=== PATIENT | male | born 2005 | race Caucasian/White ===

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

== ENCOUNTER → 2024-01-18 | Outpatient (CLI) | payer OTHER, SELFPAY ==
[2024-01-18 17:28] LABS: Absolute Lymphocyte Count 1.94 X10^3/uL (0.83-4.51); Absolute Neutrophil Count 3.8 X10^3/uL (2.0-7.7); Basophil# 0.05 X10^3/uL; Basophil% 0.8 % (0-1); Eosinophil# 0.17 X10^3/uL; Eosinophils% 2.7 % (0-5); Hematocrit 44.8 % (40-54); Hemoglobin 15.3 g/dL (13.0-16.5); Lymphocyte # 1.94 X10^3/ul (0.83-4.51); Mean Corp Hgb Conc 34.2 g/dL (32-36); Mean Corpuscular Hgb 30.4 pg (27.0-32.0); Mean Corpuscular Volume 89.1 fL (80-94); Mean Platelet Vol. 9.9 fl (6.2-12.0); Monocyte# 0.32 X10^3/uL; Monocyte% 5.1 % (0-10); NRBC Flagged by Analyzer 0 % (0-5); Neutrophil # 3.77 X10^3/uL (2.7-7.7); Neutrophil % 60.2 % (47-70); Platelet Count 279 K/mm3 (150-450); RBC Distribution Width CV 11.4 % (11.6-14.6); RBC Distribution Width SD 36.3 fl (35.1-43.9); Red Blood Count 5.03 M/mm3 (4.6-6.2); White Blood Count 6.3 K/mm3 (4.4-11.0)
[2024-01-18 17:46] LABS: Erythrocyte Sedimentation Rate 3 mm/hr (0-20)
[2024-01-18 17:53] LABS: ALB/GLOB Ratio 1.2 RATIO (0.9-2.4); AST(SGOT) 15 U/L (15-37); Alanine Aminotransfer ALT/SGPT 17 U/L (16-61); Albumin, Serum 4.4 g/dL (3.2-5.0); Alkaline Phosphatase 73 U/L (45-117); Anion Gap 5 (5-15); BUN 10 mg/dL (7-18); BUN/Creat Ratio 9.4 RATIO (10-20); CRP < 2.90 mg/L (0.0-3.0); Calcium,Total 9.2 mg/dL (8.5-10.1); Chloride 102 mmol/L (98-107); Creatinine, Serum 1.06 mg/dL (0.70-1.30); EST Glomerular Filtration Rate 95 mL/min (>60); Est Glom Filt Rate - Afr Amer 115 mL/min (>60); Globulin 3.7 g/dL (2.2-4.2); Glucose 135 mg/dL (74-106); Potassium 3.8 mmol/L (3.5-5.1); Protein, Total 8.1 g/dL (6.4-8.2); Sodium Level 136 mmol/L (136-145)
== END | disposition home or self-care (01) ==
LOC: MTLAB 15:22
PROVIDERS: PCP Internal Medicine; Referring Provider Internal Medicine; Visit Provider Internal Medicine
DX: R11.2 Nausea with vomiting, unspecified (principal); R10.31 Right lower quadrant pain
CPT/HCPCS: 36415; 80053; 85025; 85652; 86140

== ENCOUNTER → 2024-04-28 | Outpatient (CLI) | payer OTHER, SELFPAY ==
[2024-04-30 17:07] LABS: H.Pylori Breath Test Negative (Negative)
== END | disposition home or self-care (01) ==
LOC: LAB 14:03
PROVIDERS: PCP Internal Medicine; Referring Provider Internal Medicine; Visit Provider Internal Medicine
DX: R11.2 Nausea with vomiting, unspecified (principal); R10.31 Right lower quadrant pain
CPT/HCPCS: 83013

== ENCOUNTER → 2024-05-06 | Outpatient (CLI) | payer OTHER, SELFPAY ==
[2024-05-06 14:59] LABS: Erythrocyte Sedimentation Rate < 1 mm/hr (0-20)
[2024-05-06 15:01] LABS: International Normalized Ratio 1.1; Platelet Count 235 K/mm3 (150-450); Prothrombin Time (Protime)PT. 14.4 SECONDS (11.7-14.9); RET-HE 35.4 pg (30-35)
[2024-05-06 15:28] LABS: Vitamin B12 421 pg/mL (211-911)
[2024-05-06 15:56] LABS: ALB/GLOB Ratio 1.3 RATIO (0.9-2.4); AST(SGOT) 16 U/L (15-37); Alanine Aminotransfer ALT/SGPT 16 U/L (16-61); Albumin, Serum 4.2 g/dL (3.2-5.0); Alkaline Phosphatase 61 U/L (45-117); Anion Gap 6 (5-15); BUN 8 mg/dL (7-18); BUN/Creat Ratio 9.4 RATIO (10-20); CRP < 2.90 mg/L (0.0-3.0); Chloride 105 mmol/L (98-107); Creatinine, Serum 0.85 mg/dL (0.70-1.30); EST Glomerular Filtration Rate 122 mL/min (>60); Est Glom Filt Rate - Afr Amer 148 mL/min (>60); Ferritin 39 ng/mL (26-388); Globulin 3.3 g/dL (2.2-4.2); Glucose 103 mg/dL (74-106); Iron 85 ug/dL (65-175); Iron Binding Capacity,Total 347 ug/dL (250-450); Potassium 3.6 mmol/L (3.5-5.1); Protein, Total 7.5 g/dL (6.4-8.2); Sodium Level 138 mmol/L (136-145); T4 Free Direct 0.91 ng/dL (0.76-1.46); Thyroid Stim Hormone (TSH) 0.67 uIU/mL (0.358-3.74)
[2024-05-13 04:07] LABS: Chocolate <0.10 kU/L (Class 0); Codfish <0.10 kU/L (Class 0); Corn <0.10 kU/L (Class 0); Egg, Whole <0.10 kU/L (Class 0); Milk (Cow) <0.10 kU/L (Class 0); Mussels <0.10 kU/L (Class 0); Peanut <0.10 kU/L (Class 0); Pork <0.10 kU/L (Class 0); Salmon <0.10 kU/L (Class 0); Shrimp <0.10 kU/L (Class 0); Soybean <0.10 kU/L (Class 0); Tuna <0.10 kU/L (Class 0); Wheat <0.10 kU/L (Class 0)
[2024-05-13 13:42] LABS: Albumin 4.4 g/dL (2.9-4.4); Alpha-1-Globulins 0.2 g/dL (0.0-0.4); Alpha-2-Globulins 0.7 g/dL (0.4-1.0); Angiotensin Convert Enzyme 40 U/L (14-82); Anti-Parietal Cell AB, QN 16.1 Units (0.0-20.0); Ceruloplasmin 14.7 mg/dL (16.0-31.0); Copper, Serum or Plasma 53 ug/dL (63-121); Cytoplasmic Ab (C-ANCA) <1:20 titer (Neg:<1:20); Endomysial Antibody IgA Negative (Negative); Gamma Globulin 0.9 g/dL (0.4-1.8); Gastrin, Serum 662 pg/mL (0-115); HEPATITIS B SURFACE AG Negative (Negative); Hep C Antibodies Non Reactive (Non Reactive); Hepatitis A IgM Antibody Negative (Negative); Hepatitis B Core AB IgM Negative (Negative); IMMUNOFIXATION RESULT,S Comment: (.); Immunoglobulin A 202 mg/dL (90-386); Immunoglobulin E 43 IU/mL (6-495); Immunoglobulin G 1052 mg/dL (603-1613); Immunoglobulin M 103 mg/dL (20-172); Perinuclear Ab (P-ANCA) <1:20 titer (Neg:<1:20); t-Transglutaminase IgA <2 U/mL (0-3)
== END | disposition home or self-care (01) ==
LOC: LAB 13:58
PROVIDERS: PCP Internal Medicine; Referring Provider Internal Medicine Gastroenterology; Visit Provider Internal Medicine Gastroenterology
DX: R11.2 Nausea with vomiting, unspecified (principal); R10.31 Right lower quadrant pain
CPT/HCPCS: 36415; 80053; 80074; 82140; 82164; 82390; 82525; 82607; 82652; 82728; 82746; 82784; 82785; 82941; 83516; 83540; 83550; 84165; 84439; 84443; 84481; 85045; 85610; 85652; 86003; 86005; 86140; 86255; 86256; 86334

== ENCOUNTER 2024-05-13 05:50 | Day surgery (SDC) | payer OTHER, SELFPAY ==
[2024-05-13] VITALS (10 sets, daily range): BP systolic 102–140; BP diastolic 46–93; PULSE 94–106; RESP 15–24; TEMP 36.6–36.9; O2SAT 94–100; BMI 18.6
[2024-05-13] MEDS: Lactated Ringers 1,000 ML 15 ML IV (06:29)
--- NOTE | 2024-05-13 06:39 | PCM.HP.BLA ---
History and Physical Date of Admission: 05/13/24 Chief Complaint: nausea Details: DEVAN SPENCER, is a 19 M who presents to the office today for initial consult. *BGI established 8.9.24 pt reports chronic nausea, vomiting 1-2 times a week, heartburn after eating; cannot identify trigger foods, and difficulty swallowing foods. Pt reports that these symptoms began in December when he was changing around his antidepressants. Mom states that pt had some of these symptoms when he was young. Pt reports that he has never had an EGD. ROS Const Constitutional: Positive for fatigue and headache(s); No fever(s) or weight change ENT ENT: Positive for headache(s) and difficulty swallowing Gastro GI: Positive for heartburn, difficulty swallowing, nausea/dyspepsia and vomiting; No abdominal pain, belching, bloating, change in bowel habits, change in stool character, coffee ground emesis, constipation, cramping, diarrhea, feeling full early, excessive flatus, incontinent of stools, Vomiting blood/hematemesis, Blood in stool, loose stools, Black,tarry stools, pain with swallowing or other Musc Musculoskeletal: Positive for joint pain Skin Skin: No yellowing of the eye or itchy eyes Neuro Neurology: Positive for headache(s) and tremor(s) Psych Psychiatric: Positive for anxiety, No depression and Positive for obsessions/compulsions Endo Endocrine: Positive for fatigue; No weight change Aller/Imm Allergy/Immunologic: No itchy eyes Milo/Lymp Hematologic/Lymphatic: No easy bleeding or easy bruising Exam Const General: cooperative, anxious, frail appearing and ill appearing Orientation: alert, awake and oriented x3 HENMT Mouth: lip abnormal (lips dry) and oral mucosa abnormal (dry) Resp Effort & Inspection: normal respiratory effort, able to speak in complete sentences and symmetric chest movement Auscultation: Bilateral: Clear to Auscultation, Left: Clear to Auscultation and Right: Clear to Auscultation Cardio Rate: tachycardic (mild tachy ) Rhythm: regular rhythm Heart Sounds: S1 normal and S2 normal GI Other: + tenderness at McBurney point from umbilicus to the right?anterior superior iliac spine. + tenderness upper middle quadrant abdomen + rebound tenderness RLQ - negative Rosvigs, obturator and psoas Skin Other: normal skin turgor Neuro General: patient alert, patient awake and patient oriented x3 Cognition: normal cognition Speech: speech normal Psych Mood: anxious mood Attitude: cooperative Thought Process: normal Thought Content: normal Judgment: judgment good Assessment and Plan Assessment and Plan (1) Nausea & vomiting: Status: Acute Qualifiers: Vomiting type: unspecified Qualified Code(s): R11.2 - Nausea with vomiting, unspecified (2) Abdominal pain: Status: Acute Qualifiers: Abdominal location: right lower quadrant Qualified Code(s): R10.31 - Right lower quadrant pain Plan: Very pleasant 19-year-old gentleman with history of gastroesophageal reflux disease, severe anxiety, positive history of Quan-Danlos syndrome in his mother presents with intermittent esophageal dysphagia and intermittent bloating and abdominal pain. Differential diagnosis does include eosinophilic esophagitis, gastroesophageal reflux disease with peptic stricture, hiatal hernia. Also the differential diagnosis does include gastroparesis. Recommendations: he will undergo upper endoscopy for evaluation of his upper GI tract. Recommend PPI therapy with 20 mg twice a day. I have examined the patient and the H&P has been reviewed. There are no clinical changes since date of exam.
--- NOTE | 2024-05-13 06:58 | PCM.PRE.AN2 ---
ASA Classification* ASA Classification ASA Classification: 2 Assessment & Plan Anesthesia* Anesthesia Assessment Anesthesia Assessment: Discussed sedation and/or anesthesia options, risks, benefits, and alternatives with patient/parents/legal guardian/POA. Questions invited. The patient/parents/legal guardian/POA seems to understand and agrees to proceed with anesthesia plan. Reviewed the physical assessment, medical history, allergy history and patient home medications list prior to surgery/procedure/anesthetic and documented any changes. Performed airway and anesthesia risk assessments. Anesthesia Type Anesthesia Type: MAC History Source History Obtained from:: Patient and Chart Anesthesia Focused Assessment* Temperature: 98.4 F Pulse Rate: 106 Blood Pressure: 140/93 Respiratory Rate: 24 Pulse Ox: 100 Airway Assessment Mouth opens: >3 cm Mallampati Score: II Teeth Condition: Intact Neck Range of motion (ROM): Full ROM Focused Labs Anesthesia Preop lab: CBC WBC 6.3 K/mm3 (4.4-11.0) 01/18/24 15:23 RBC 5.03 M/mm3 (4.6-6.2) 01/18/24 15:23 Hgb 15.3 g/dL (13.0-16.5) 01/18/24 15:23 Hct 44.8 % (40-54) 01/18/24 15:23 Plt Count 279 K/mm3 (150-450) 01/18/24 15:23 CHEMISTRY Potassium 3.6 mmol/L (3.5-5.1) 05/06/24 14:19 Sodium 138 mmol/L (136-145) 05/06/24 14:19 Magnesium 2.4 mg/dL (1.6-2.6) 03/05/23 09:28 BUN 8 mg/dL (7-18) 05/06/24 14:19 Creatinine 0.85 mg/dL (0.70-1.30) 05/06/24 14:19 Glucose 103 mg/dL (74-106) 05/06/24 14:19 TSH 0.67 uIU/mL (0.358-3.74) 05/06/24 14:19 COAG PT 14.4 SECONDS (11.7-14.9) 05/06/24 14:19 Pre-Assessment Diagnosis/Proposed Procedure Planned Operative Procedure(s): egd Anesthesia History 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 When Was Last Pacemaker Check QUESTION #4 FULL TEXT: You/Your Family Experience fever (hyperthermia) with Anesthesia Last Oral Intake Last Oral intake: Last Oral Intake NPO since 16:00 05/13/24 06:20 Meds taken in AM with sips of Yes 05/13/24 06:20 water? Meds patient instructed to take am of surgery PONV PONV - systems accountant: PONV - systems accountant Female No 05/10/24 13:33 HX of Motion Sickness Yes 05/10/24 13:33 HX of N/V After Surgery No 05/10/24 13:33 Non-Smoker Yes 05/10/24 13:33 Duration of Surgery greater No 05/10/24 13:33 than 60 minutes Number of Risk Factors 2 05/10/24 13:33 PONV Score Moderate Risk 05/10/24 13:33 Height & Weight Height & Weight: Anesthesia: Height & Weight Height 5 ft 9 in 05/13/24 06:20 Weight: 57.1 kg 05/13/24 06:20 Body Mass Index (BMI) 18.6 05/13/24 06:20 Respiratory Assessment Respiratory Assessment - systems accountant: Respiratory Tract Infection Hx - systems accountant Hx Respiratory Tract Infection No 05/10/24 13:33 STOP Sleep Apnea STOP Sleep Apnea - systems accountant: STOP Sleep Apnea - systems accountant Hx Hypertension No 05/10/24 13:33 Hx Sleep Apnea No 05/10/24 13:33 CPAP BIPAP Do you snore loudly (louder No 05/10/24 13:33 than talking or can be heard Do you often feel tired/ No 05/10/24 13:33 fatigued/ sleepy during daytime? Has anyone observed you stop No 05/10/24 13:33 breathing during sleep? STOP Results Negative 05/10/24 13:33 QUESTION #5 FULL TEXT : Do you snore loudly (louder than talking or can be heard through closed doors)? Tobacco Use History Tobacco Use History - systems accountant: Tobacco Use History - systems accountant Tobacco Use Smoking Status Never smoker 05/10/24 13:33 Hx Tobacco Use No 05/10/24 13:33 Years Smoking Packs Smoked per Day Smoking Cessation Date was within the last 15 years Hx Smoking Cessation Date Hx Smoking Cessation Counseling Hematologic Medial History Hematologic Hx - systems accountant: Hematologic Medical Hx - internal carver Hx of Blood Transfusion No 05/10/24 13:33 Hx of Transfusion in last 3 No 05/10/24 13:33 Months Date of Last Transfusion (if within last 3 months) Ever experience any problems No 05/10/24 13:33 with transfusion(s)? Specify any problems Hx of Preganancy in last 3 N/A 05/10/24 13:33 Months Nurse Filling Out Transfusion NBUCHER 05/10/24 13:33 & Questions: Date: 05/10/24 05/10/24 13:33 Time: 13:33 05/10/24 13:33 Patient unable to answer at this time (ie. confused, unrespo /Reproduction History /Reproductive History - systems accountant: /Reproductive Hx- systems accountant Hx Now No 05/10/24 13:33 Gestational Age (in weeks): EDC: Hx Hx Para Hx Section SAB No 05/10/24 13:33 Active Medications Active Medications: Current Medications Generic Name Dose Route Start Last Admin Trade Name Erik PRN Reason Stop Dose Admin Lactated Ringer's 1,000 mls @ 15 mls/hr 05/13/24 06:15 05/13/24 06:29 IV 15 mls/hr .Q48H BARBARA Administration PFSH Medical History Somatic symptom disorder History of echocardiogram Gastroesophageal reflux disease Wears contact lenses Anxiety History of steroid therapy Restless legs Shortness of breath on exertion Non-smoker Home Medications ?Medication ?Instructions ?Recorded ?Last Taken ?Type esomeprazole magnesium 40 mg 40 mg PO DAILY #30 caps 04/28/24 05/12/24 Rx capsule,delayed release (Nexium) acetaminophen 325 mg tablet 325 mg PO ONCE PRN pain 05/06/24 05/12/24 History (Tylenol) cholecalciferol (vitamin D3) 125 125 mcg PO DAILY 05/06/24 05/12/24 History mcg (5,000 unit) capsule multivitamin 1 tab PO DAILY 05/06/24 05/12/24 History ondansetron 4 mg disintegrating 4 mg PO Q8H PRN nausea and vomiting 05/10/24 05/13/24 History tablet 8 mg buspirone 5 mg tablet 5 mg PO BID #60 tabs 05/11/24 Unknown Rx duloxetine 30 mg capsule,delayed 30 mg PO DAILY #30 caps 05/11/24 05/12/24 Rx release Allergy/AdvReac Type Severity Reaction Status Date / Time Sulfa (Sulfonamide Allergy Unknown UNKNOWN Verified 05/13/24 06:18 Antibiotics) Family History Sister Anemia Anxiety Thyroid disorder Vitamin D deficiency Postural orthostatic tachycardia syndrome Mother Anxiety History of blood transfusion Raynauds disease Quan-Danlos syndrome Brother Anxiety Asthma Chiari I malformation Migraines Father Asthma Bowel disease IBS Grandfather Diabetes Heart disease Mitral valve disease Afib Grandmother Parkinsons Surgical History History of nasal polypectomy Nasal polyp Hx of wisdom tooth extraction Social History adopted: No household members: family housing: house number of children: 0 current occupational status: unemployed current occupational exposures/hazards: No pets and animals: Yes pets and animals: dog(s) leisure activities: games history of recent travel: No sexually active: No Smoking Status: Never smoker alcohol intake: never substance use type: does not use well-balanced diet: daily or most days caffeine: No eating out: 1-3 times/week during the past year weight has: remained stable what type of physical activity do you participate in: none seatbelt use: always do you feel safe at home: Yes Review of Systems (Anesthesia) ROS Narrative System reviewed and no additional complaints, except as documented.
--- NOTE | 2024-05-13 07:00 | EGD_PTH ---
PATIENT: DEVAN SPENCER LOC: [place] U#:[id number] AGE/SX: 19/M ROOM: RE05/13/[address]: Dr. Ubaldo Patiño DO : 2005 BED: DIS: 05/13/2024 SPEC #: [id number] RECD: 05/13/24 10:55 STATUS: JT REQ #: [id number] IVY: 05/13/24 07:[address]: Ubaldo Patiño DEPT: SURGICAL PATHOLOGY RECD BY: Bianka Byrne ENTERED: 05/13/24 13:17 SP TYPE: EGD BIOPSY CRISTOPHER DR: Dr. Adilia De Los Santos MD Tissues: A - Duodenum, NOS B - Gastric mucous membrane C - Gastric mucous membrane Procedures: Surgery Specimen Level IV HEADER OPERATION: EGD with biopsy PRE-OP DIAGNOSIS: Nausea/vomiting, abdominal pain TISSUE SUBMITTED: A- Duodenum biopsy, B- Gastric body biopsy, C- Random biopsy MICROSCOPIC DIAGNOSIS A. Duodenum, biopsy: Mild non-specific chronic inflammation. B. Gastric body, biopsy: Mild chronic gastritis. C. Esophagus, random biopsy: Eosinophilic esophagitis. See comment. [place] 05/16/2024 COMMENT B. The results of immunohistochemistry for Helicobacter pylori will be reported separately ([id number]). C. Eosinophils range in number from 15-24 per high power field. The findings are consistent with eosinophilic esophagitis. Clinical correlation is suggested. MICROSCOPIC DESCRIPTION Slides are reviewed. GROSS DESCRIPTION A. Received in fixative is one container labeled with the patient's name and designated Duodenum biopsy. The specimen consists of multiple irregular fragments of light nguyen soft tissue that in aggregate measure 1.2 x 0.3 x 0.1 cm. The specimen is totally submitted in one cassette. B. Received in fixative is one container labeled with the patient's name and designated Gastric body biopsy. The specimen consists of multiple irregular fragments of light nguyen soft tissue that in aggregate measure 1.5 x 0.2 x 0.1 cm. The specimen is totally submitted in one cassette. C. Received in fixative is one container labeled with the patient's name and designated Random esophagus biopsy. The specimen consists of multiple irregular fragments of light nguyen soft tissue that in aggregate measure 0.8 x 0.6 x 0.1 cm. The specimen is totally submitted in one cassette. GEM/ 05/13/2024 TC:3 CPT:07655h8
--- NOTE | 2024-05-13 07:00 | IMM_PTH ---
PATIENT: DEVAN SPENCER LOC: [place] U#:[id number] AGE/SX: 19/M ROOM: RE05/13/[address]: Dr. Ubaldo Patiño DO : 2005 BED: DIS: 05/13/2024 SPEC #: [id number] RECD: 05/13/24 13:27 STATUS: JT REQ #: [id number] IVY: 05/13/24 07:[address]: Ubaldo Patiño DEPT: IMMUNOHISTOCHEMISTRY RECD BY: Jovanni Diop ENTERED: 05/13/24 13:27 SP TYPE: IMMUNO OTHR DR: Dr. Adilia De Los Santos MD Tissues: B - Gastric mucous membrane Procedures: H Pylori (initial) PHYSICIAN & INSTITUTION [place] [id number] SPECIMEN INFORMATION: Tissue Source: B- Gastric body biopsy Clinical Info: Nausea/vomiting, abdominal pain Specimen Number: [id number] CPT code: 24188 METHODOLOGY: Deparaffinized sections of prefer/formalin-fixed tissue or PAP/DQ stained slides are incubated with monoclonal/polyclonal antibodies/oligonucleotide probes. Localization is made via biotin free immunoperoxidase method. Appropriate controls are performed and reacted as expected. Results on target cell population are indicated in the following table: RESULTS: ANTIBODY / CLONE RESULT Block B H Pylori (polyclonal) negative These tests were developed and their performance characteristics determined by [facility]. They may not have been cleared or approved by the U.S. Food and Drug Administration. The FDA has determined that such clearance or approval is not necessary. The above immunohistochemical/dualISH markers are ordered and reviewed by the Pathologist. INTERPRETATION: B. Gastric body, biopsy: Negative for Helicobacter pylori organisms. YARELY/ 05/16/2024
--- NOTE | 2024-05-13 07:27 | OP.CCLET_ITS ---
05/13/2024 Adilia De Los Santos [facility] [address] [place] [address] Re : Upper GI endoscopy procedure for David Naranjo Dear Dr. De Los Santos This procedure was performed on Monday, May 13, 2024. My impressions and recommendations are as follows: Impressions : - Non-severe reflux esophagitis with no bleeding. Biopsied. - Erythematous mucosa in the gastric body. Biopsied. - Bile duodenitis. Biopsied. Recommendations : - Discharge patient to home. - Resume previous diet. - Continue present medications. - Await pathology results. - Gastric emptying study My findings are described in the full procedure note, which is enclosed. If I can be of further assistance, please feel free to contact me at . Sincerely, Ubaldo Patiño, 05/13/2024 7:26:30 AM This report has been signed electronically.
--- NOTE | 2024-05-13 07:27 | OP.EGD_ITS ---
Patient Name: David Naranjo Procedure Date: 05/13/2024 6:14 AM Date of : 2005 Age: 19 Procedure: Upper GI endoscopy Indications: Epigastric abdominal pain Providers: Ubaldo Patiño DO Referring MD: Adilia De Los Santos Medicines: Monitored Anesthesia Care Patient Profile: This is a 19 year old male. Complications: No immediate complications. Procedure: Pre-Anesthesia Assessment: - Prior to the procedure, a History and Physical was performed, and patient medications and allergies were reviewed. The patient is competent. The risks and benefits of the procedure and the sedation options and risks were discussed with the patient. All questions were answered and informed consent was obtained. Patient identification and proposed procedure were verified by the physician in the pre-procedure area. Mental Status Examination: alert and oriented. Airway Examination: normal oropharyngeal airway and neck mobility. Respiratory Examination: clear to auscultation. CV Examination: normal. Prophylactic Antibiotics: The patient does not require prophylactic antibiotics. Prior Anticoagulants: The patient has taken no anticoagulant or antiplatelet agents. ASA Grade Assessment: II - A patient with mild systemic disease. After reviewing the risks and benefits, the patient was deemed in satisfactory condition to undergo the procedure. The anesthesia plan was to use monitored anesthesia care (MAC). Immediately prior to administration of medications, the patient was re-assessed for adequacy to receive sedatives. The heart rate, respiratory rate, oxygen saturations, blood pressure, adequacy of pulmonary ventilation, and response to care were monitored throughout the procedure. The physical status of the patient was re-assessed after the procedure. After obtaining informed consent, the endoscope was passed under direct vision. Throughout the procedure, the patient's blood pressure, pulse, and oxygen saturations were monitored continuously. The gastroscope was introduced through the mouth, and advanced to the second part of duodenum. The upper GI endoscopy was accomplished without difficulty. The patient tolerated the procedure well. Scope In: 7:13:25 AM Scope Out: 7:18:52 AM Total Procedure Duration Time 0 hours 5 minutes 27 seconds Findings: Non-severe esophagitis with no bleeding was found. Biopsies were taken with a cold forceps for histology. Verification of patient identification for the specimen was done. Estimated blood loss was minimal. Patchy mildly erythematous mucosa without bleeding was found in the gastric body. Biopsies were taken with a cold forceps for histology. Biopsies were taken with a cold forceps for histology. Verification of patient identification for the specimen was done. Estimated blood loss was minimal. Diffuse moderate inflammation characterized by congestion (edema), erythema and granularity was found in the duodenal bulb, in the first portion of the duodenum and in the second portion of the duodenum. Biopsies were taken with a cold forceps for histology. Verification of patient identification for the specimen was done. Estimated blood loss was minimal. Impression: - Non-severe reflux esophagitis with no bleeding. Biopsied. - Erythematous mucosa in the gastric body. Biopsied. - Bile duodenitis. Biopsied. Recommendation: - Discharge patient to home. - Resume previous diet. - Continue present medications. - Await pathology results. - Gastric emptying study Procedure Code(s): --- Professional --- 95169, Esophagogastroduodenoscopy, flexible, transoral; with biopsy, single or multiple CPT copyright 2021 [employer]. All rights reserved. The codes documented in this report are preliminary and upon nursing teacher review may be revised to meet current compliance requirements. Ubaldo Patiño DO 05/13/2024 7:26:30 AM This report has been signed electronically. Number of Addenda: 0 Note Initiated On: 05/13/2024 6:14 AM
--- NOTE | 2024-05-13 07:36 | PCM.POST.ANE ---
Anesthesia: Postop Eval I Current Vital Signs Temperature: 97.9 F Pulse Rate: 101 Blood Pressure: 112/62 Respiratory Rate: 18 Pulse Ox: 98 Oxygen Delivery Method: Room Air Assessment Airway patent: Yes Spontaneous unlabored respirations: Yes Mental status: Asleep nausea: No Vomiting: No Anesthesia Complication: No Fluid Hydration Crystalloid volume administer (ml): 400 Total IV fluid infused: 400 Progress Note Anesthesia document: Postop Eval 1 completed: Yes
--- NOTE | 2024-05-13 12:45 | PCM.POSTANE2 ---
Anesthesia Postop Eval I Sum Postop Eval Completion status Anesthesia document: Postop Eval 1 completed: Yes Anesthesia Postop Eval I Summary Anesthesia Postop Eval I Summary: Anesthesia Postop Eval I: Assessment Summary Airway patent Yes 05/13/24 07:36 [email or web address] Spontaneous unlabored Yes 05/13/24 07:36 [email or web address] respirations Mental status Asleep 05/13/24 07:36 [email or web address] nausea No 05/13/24 07:36 [email or web address] Vomiting No 05/13/24 07:36 [email or web address] Anesthesia Postop Eval I: Fluid Summary Crystalloid volume administer 400 05/13/24 07:36 [email or web address] (ml) Colloids volume administered ( ml) Blood Product volume administered (ml) Total IV fluid infused 400 05/13/24 07:36 [email or web address] Anesthesia Postop Eval I: Summary Notes Anesthesia Complication No 05/13/24 07:36 [email or web address] Anesthesia Complication Comment: Post-operative progress note Anesthesia: Postop Eval II Evaluation Mental status: Awake Pain Level: 0 nausea: No Vomiting: No
== END 2024-05-13 08:13 | disposition home or self-care (01) ==
LOC: EN 05:56 → AC 05:59
PROVIDERS: PCP Internal Medicine; Referring Provider Internal Medicine; Visit Provider Internal Medicine Gastroenterology
PROC: 0DJ08ZZ Inspection of Upper Intestinal Tract, Via Natural or Artificial Opening Endoscopic (ICD-10-PCS; CPT 43235; principal; 2024-05-13 06:55)
DX: K21.00 Gastro-esophageal reflux disease with esophagitis, without bleeding (principal); K29.50 Unspecified chronic gastritis without bleeding; K29.80 Duodenitis without bleeding; F41.8 Other specified anxiety disorders; Z79.899 Other long term (current) drug therapy
CPT/HCPCS: 43239; 88305; 88342; J7120; J2405

== ENCOUNTER → 2024-05-19 | Outpatient (CLI) | payer OTHER, SELFPAY ==
--- NOTE | 2024-05-19 08:14 | NM_ITS ---
CLINICAL: 19-year-old male with history of chronic nausea. SEMI-SOLID PHASE 99m Tc SULFUR COLLOID GASTRIC EMPTYING STUDY COMPARISON: None available FINDINGS: The patient was administered 1.2 mCi of 99m Tc sulfur colloid mixed with oatmeal and consumed per os. Image acquisitions in the anterior-posterior projections were obtained for 60 minutes. There is prompt visualization of the stomach. There is no gastroesophageal reflux identified. First order kinetics are maintained throughout the duration of the acquisitions. The T ? linear fit was calculated to be 60.51 minutes, (Normal: 12-56 minutes). NM/Gastric Emptying Study IMPRESSION: 1. ABNORMAL 99m Tc sulfur colloid semi-solid phase (oatmeal) gastric emptying imaging examination. A. There is delayed semi-solid phase gastric emptying compared to normal controls with maintained first order kinetics throughout all components of the examination. (Avelino et al, J Nucl Med Tech 38: 186, 2010). Electronically Signed: Dima Tracy DO at 23:36 EDT ,
== END | disposition home or self-care (01) ==
LOC: NM 08:10
PROVIDERS: PCP Internal Medicine; Referring Provider Internal Medicine Gastroenterology; Visit Provider Internal Medicine Gastroenterology
DX: R10.32 Left lower quadrant pain (principal); R11.2 Nausea with vomiting, unspecified
CPT/HCPCS: 78264; A9541

== ENCOUNTER → 2024-08-02 | Outpatient (CLI) | payer OTHER, SELFPAY ==
--- NOTE | 2024-08-02 09:22 | NM_ITS ---
CLINICAL: 19-year-old male with history of bilateral acid reflux. RADIONUCLIDE HEPATOBILIARY SCINTIGRAPHY COMPARISON: None available FINDINGS: Following the intravenous administration of 5.5 mCi of 99m Tc Mebrofenin, hepatobiliary images reveal: 1. Relatively prompt and homogeneous radiopharmaceutical concentration is noted by a normal sized liver. No parenchymal defects are identified. 2. Gallbladder activity is identified at 10-15 minutes post radiopharmaceutical administration. 3. Small intestinal tract is observed at 45 minutes following tracer injection. 4. Washout of the radiopharmaceutical by the hepatic parenchyma appears qualitatively normal. Cholecystokinin (0.02 ug/kg) was administered intravenously over a 30-minute period. The post CCK gallbladder ejection fraction calculated at 20 minutes following Cholecystokinin administration was noted to be 11.0 % (normal greater than 35%). NM/Hepatobilliary Img w/Pharm Int IMPRESSION: 1. ABNORMAL 99m Tc Mebrofenin hepatobiliary imaging examination with Cholecystokinin. A. A gallbladder ejection fraction calculated to be less than 35% following the administration of Cholecystokinin is consistent with the presence of functional hepatobiliary disease (gallbladder and/or sphincter of Oddi dyskinesia) and/or organic hepatobiliary disease (chronic acalculous cholecystitis and/or cystic duct syndrome) in patients with intermediate to high pretest probabilities of hepatobiliary illness. (Jesse Reaves et al, Journal of Nuclear Medicine 32:1695, 1991). Electronically Signed: Dima Tracy DO at 7:43 EST ,
--- OUTSIDE RECORDS SUMMARY | 2024-08-02 10:38 | XMS RPT_ITS | CCD ---
Author Organization [facility] Care Team Providers Care Infection Prevention Coordinator Name Role Phone Francisca Corrales MD Primary Care Provider [phone] FRANCISCA CORRALES Primary Care Unavailable SAVANNA, FRANCISCA Mclaughlin Primary Care Unavailable FRANCISCA CORRALES Attending Unavailable FRANCISCA CORRALES Referring Unavailable FRANCISCA CORRALES Primary Care Unavailable FRANCISCA CORRALES Primary Care Unavailable FRANCISCA CORRALES Attending Unavailable FRANCISCA CORRALES Primary Care Unavailable Francisca Corrales MD Primary Care Provider Allergies Allergy Classification Reported Allergen(s) Allergy Type Date of Onset Reaction(s) Facility (6 sources) Sulfonamides (Antibiotic); Translations: [SULFA (SULFONAMIDE ANTIBIOTICS)] Drug Allergy 02-20-2015 Rash [facility] Work Phone: Medications Completed/Discontinued Medications Medication Drug Class(es) Dates Sig (Normalized) Sig (Original) dapsone 0.075 mg/mg topical gel (5 sources) Sulfone Start: 12-24-2017 ACZONE 7.5 % glwp APPLY TO THE FACE AT NIGHT. 12 12/24/2017 Active Comment on above: APPLY TO THE FACE AT NIGHT. doxycycline anhydrous 40 mg delayed release oral capsule (5 sources) Tetracycline-clas s Drug Start: 03-02-2019 Doxycycline Monohydrate (ORACEA) 40 mg capsule predniSONE 10 mg oral tablet (2 sources) Start: 02-09-2022 End: 03-31-2022 predniSONE (DELTASONE) 10 mg tablet Take 4 tabs daily for 3 days, then 2 tabs daily for 3 days, then 1 tab daily for 3 days with food. 21 tablet 0 02/09/2022 03/31/2022 Discontinued (Course of therapy completed) Comment on above: Take 4 tabs daily fo r 3 days, then 2 tabs daily for 3 days, then 1 tab daily for 3 days with food. Problems Active Problems Problem Classification Problem Date Documented Da te Episodic/Chronic Other upper respiratory disease (1 source) Nasal congestion; Translations: [Nasal congestion] Episodic Other upper respiratory infections (1 source) Pharyngitis; Translations: [Acute pharyngitis, unspecified] Episodic Viral infection (1 source) Viral disease; Translations: [Viral infection, unspecified] Episodic Past or Other Problems Problem Classification Problem Date Documented Da te Episodic/Chronic Other connective tissue disease (1 source) Myalgia, unspecified site; Translations: [Myalgias] Onset: 12-20-2021 Episodic Results Test Name Value Interpretation Reference Range Facil ity CNOVon 08-06-2022 CNOV Office Visit (UCWSTR ) DEVAN NARANJO ([id number]) 3 M Date Time Provider Department 08/06/22 10:30 AM TATE CRUZ [facility] During your visit today, we recorded the following information about you: Temperature Pulse Respiration Blood pressure 98 degrees 104/minute 16/minute 104/78 Weight 52.5 kg Tate Cruz APRN.CNP 08/06/2022 10:52 AM Signed How to Manage Common Symptoms Associated with COVID for Adults Fever- Fever is a temperature over 100.4 F and can occur when the body is fighting an infection. To help treat a fever: Drink plenty of fluids and stay well hydrated. Eat small amounts of easy to digest food. Rest. Your body needs rest to recover, but getting up and moving around the house frequently is a good idea. You should try to continue doing your normal daily activities (bathing, toileting, grooming, cooking), though you will probably feel tired, and need to rest often. Avoid any heavy activity or exercise, as this will increase your body temperature. Dress in light clothing and stay covered in a light sheet. Keep the room temperature cool. Take a slightly warm (not cold or cool) bath, or apply damp washcloths to the forehead and wrists. Cough- Cough is a common symptom associated with COVID and can be bothersome. To help treat a cough: Stay well hydrated. Try warm water or tea with lemon and/or honey to help soothe the cough. Use a humidifier to add moisture to the air. Try a product with menthol, like a cough drop or a rub for your chest such as Vicks, which can help reduce cough. Try cough drops. Avoid smoking and other strong odors or perfumes. Try breathing exercises to keep your lungs open and clear. Take a big deep breath through your nose and hold for 5 seconds before slowly releasing. Repeat frequently, while you are awake. Congestion- Runny nose or nasal congestion can occur with COVID. Treatment can help relieve symptoms: Try OTC nasal saline spray, or nasal saline rinse to relieve mucus congestion. Nasal strips can help keep nasal passages open, to increase airflow. Elevating your head with an extra pillow in bed can help reduce congestion. Using a humidifier can increase moisture in the air, and make breathing easier. Sore Throat- Another common symptom with COVID, can be managed at home by: Stay well hydrated. Gargle with salt water - mix ? teaspoon salt with 1 cup of warm water and gargle. This helps to loosen mucus in the back of the throat and may reduce discomfort. Try ice chips, popsicles or lozenges to soothe the throat. Nausea/Vomiting/Diarrhe a- These are common symptoms, and staying hydrated is most important. If you are nauseous or vomiting, start with small sips of water every 10-15 minutes and increase as tolerated. You can try sucking an ice cube too. If tolerating, you can try pedialyte or Gatorade, or flat sprite or lola-thierry. Start slowly and increase as you are able to. Instead of meals, try smaller, more frequent snacks. Try eating bland foods like crackers, toast, rice, and applesauce. Avoid spicy, greasy or fried foods and dairy containing foods. Even if you aren't feeling hungry due to lack of smell or taste, it is important to try to take in some food when you are able. After drinking and eating, rest in an upright position for up to two hours as needed to help decrease nauseous feelings. Try closing your eyes, avoid moving and watching TV. Avoid strong odors that can make you feel more nauseated. When to seek emergency medical attention Look for emergency warning signs for COVID-19. If having any of these symptoms, seek emergency medical care immediately: Trouble breathing Persistent pain or pressure in the chest New confusion Inability to wake or stay awake Bluish lips or face *This list is not all possible symptoms. Please call your medical provider for any other symptoms that are severe or concerning to you. Tate Cruz, DELMAR.BOAT DISPATCHER 08/06/2022 11:41 AM Signed Subjective HPI Nontoxic-appearing male presents urgent care accompanied by mother. Chief complaint of upper respiratory tract like infection. Duration of symptoms 3 days. Associated symptoms sore throat, nasal congestion, nasal discharge and nonproductive cough. Patient denies the use of any yiwz-hgy-qdvkgqd medications or home remedies for symptom management toady. Did use Mucinex DM yesterday. This did help. Patient states recent sick contacts with similar signs and symptoms. Patient denies any productive cough, fever, chest pain, shortness of breath, pleuritic pain, rash, abdominal pain, nausea, vomiting or change in bowel or bladder habit. Past medical history prescription medication use allergies reviewed. .Patient presents with: Cough: Cough, congestion and ST x 3 days PAST MEDICAL HISTORY Diagnosis Date NEGATIVE HISTORY O (more content not included)... Normal [facility] CNOVon 03-18-2022 CNOV Office Visit (PEDSWS ) DEVAN NARANJO ([id number]) 3 M Date Time Provider Department 03/18/22 11:00 AM FRANCISCA CORRALES During your visit today, we recorded the following information about you: Temperature Pulse Respiration Weight 98.6 degrees 72/minute 16/minute 51.4 kg Francisca Corrales MD 03/31/2022 2:28 PM Signed 18-year-old male presents to the office today with his mother for concerns of chronic nasal congestion present for 1 month. Additional symptoms include maxillary sinus pressure. He denies the symptoms are consistent with a headache. Patient was seen in urgent care on February 09, 2022. COVID testing was negative. Patient was prescribed a course of oral prednisone. Outside urgent care and prescribed Augmentin. Prescription date appears to be 03/01/2022 based on care everywhere. Additionally the patient is using zfzi-bkk-xgsovyb nasal steroids and saline. None of these have provided him any relief. No fevers are present No eye injection or discharge is present No otalgia is present. There is no problem list on file for this patient. PAST MEDICAL HISTORY Diagnosis Date - NEGATIVE HISTORY OF 05-09-10 normal color vision - Routine or ritual circumcision PAST SURGICAL HISTORY Procedure Laterality Date - CIRCUMCISION W/CLAMP/OTH DEV W/BLOCK ALLERGIES Allergen Reactions - Sulfa (Sulfonamide * Rash 03/18/22 1104 Pulse: 72 Resp: 16 Temp: 37 ?C (98.6 ?F) TempSrc: Temporal Weight: 51.4 kg (113 lb 6.4 oz) Physical examination of the head, neck, external ears, mouth and face fail to demonstrate any significant abnormality or assymetry to critical face to face observation. The salivary glands were normal. Facial motion was intact. NOSE: Examination of the nasal chamber revealed no significant abnormalities of the nasal septum, turbinates or meati. The mucosa was healthy and the airway was satisfactory. Clear nasal discharge is present. I do not appreciate any nasal polyps. MOUTH: Examination of the mouth included the lips, teeth, gums, hard and soft palate, tongue, floor of the mouth, and buccal mucosa were healthy to inspection and the mucosa was moist. OROPHARYNX: Examination of the oropharynx, including the soft palate, tonsillar fossa and posterior pharyngeal bone were unremarkable and symmetrical. NECK: Inspection and palpation of the neck revealed no scars, masses crepitation or asymmetries. The thyroid was not palpable and was free of masses. EARS: Otoscoptic examination of the external canal, tympanic membrane and middle ear was unremarkable. Tympanic membranes are intact. Impression: Nasal congestion (primary encounter diagnosis) Plan: Flonase OTC, 2 sprays to each nostril once daily Discussed the importance of proper technique to maximize effectiveness Helpful tips for NASAL SPRAY use 1. Start by gently blowing your nose 2. Sit in a chair, with your knees hip width apart, lean forward (as demonstrated in clinic) Face looking straight down at the ground. 3. Insert nozzle into the right nostril and aim toward the tip of your right ear (do not aim straight up) 4. Squirt once At this time you can close your left nostril and lightly sniff the medication in through your right nostril. 5. THEN insert nozzle into the left nostril and aim toward the tip of your left ear. 6. squirt once At this time you can close your left nostril and lightly sniff the medication in through your right nostril. 7. Repeat step # 4 above ,if advised to take 2 squirts. 8. Keep leaning forward, facing down at the ground for 5 minutes. 9. Do this at bedtime daily--may do it in the Morning if you prefer, but be regular AND consistent. 10. May substitute with Saline spray x 5days, for nose bleeds. I spent a total of 25 minutes on the date of the service which included preparing to see the patient, eyki-re-ivan patient care, completing clinical documentation, obtaining and/or reviewing separately obtained history, performing a medically appropriate examination, counseling and educating the patient/family/caregive r and ordering medications, tests, or procedures. Follow-up No improvement in 3 to 4 weeks refer to ENT Francisca Corrales MD [facility] Department of Pediatrics, [facility] Referring Provider: SELF [200] Allergies As of Date: 03/18/2022 Noted Allergy Reaction SULFA (SULFONAMIDE ANTIBIOTICS) 02/20/2015 2 - Rash Date Reviewed: 03/18/2022 Reviewed by: Jaye Farley Ma - Fully Assessed Reason for Visit: Sinus Problem [99] Cmt: ongoing x1 month - was seen in the now clinic 3 weeks ago - started on augmentin - starte to help some but still having symptoms Primary Visit Diagnosis:Nasal congestion [R09.81] Prescriptions as of 03/31/2022 - Doxycycline Monohydrate (ORACEA) 40 mg capsule - ACZONE 7.5 % glwp APPLY TO THE FACE AT NIGHT. Problem List (more content not included)... Normal [facility] CNOVon 02-09-2022 CNOV Office Visit (UCWSTR ) DEVAN NARANJO ([id number]) 3 M Date Time Provider Department 02/09/22 1:00 PM JANAE MOSER During your visit today, we recorded the following information about you: Temperature Pulse Respiration Blood pressure 98.7 degrees 98/minute 16/minute 132/80 Weight 50.8 kg Janae Moser APRN.BOAT DISPATCHER 02/09/2022 1:37 PM Signed This note was created using Meetmealsriter. Subjective Devan Naranjo is a 16 year old male. 16 year old male with no PMH presents with complaints of illness. Acute onset one week ago +fever 99.9 +dry harsh cough +Chest congestion +sore throat Denies eye, nose, or ear complaints. Denies N/V/D. +fatigue Denies body aches. Has used Tylenol Cold and Flu with mild relief. Denies ill contacts. The history is provided by the patient. No high school foreign language tutor was used. URI He complains of cough. There is no chest tightness, difficulty breathing, frequent throat clearing, hemoptysis, hoarse voice, shortness of breath, sputum production or wheezing. This is a new problem. The current episode started in the past 7 days. The problem occurs constantly. The problem has been gradually worsening. The cough is non-productive. Associated symptoms include a fever, malaise/fatigue, nasal congestion, rhinorrhea and a sore throat. Pertinent negatives include no appetite change, chest pain, dyspnea on exertion, ear congestion, ear pain, headaches, heartburn, myalgias, orthopnea, PND, postnasal drip, sneezing, sweats, trouble swallowing or weight loss. His symptoms are aggravated by nothing. His symptoms are alleviated by nothing. He reports no improvement on treatment. There are no known risk factors for lung disease. There is no history of asthma, bronchiectasis, bronchitis, COPD, emphysema or pneumonia. PAST MEDICAL HISTORY Diagnosis Date - NEGATIVE HISTORY OF 8-12-10 normal color vision - Routine or ritual circumcision PAST SURGICAL HISTORY Procedure Laterality Date - CIRCUMCISION W/CLAMP/OTH DEV W/BLOCK ALLERGIES Sulfa (Sulfonamide Antibiotics) MEDICATIONS predniSONE (DELTASONE) 10 mg tablet Take 4 tabs daily for 3 days, then 2 tabs daily for 3 days, then 1 tab daily for 3 days with food. Doxycycline Monohydrate (ORACEA) 40 mg capsule ACZONE 7.5 % glwp APPLY TO THE FACE AT NIGHT. FAMILY HISTORY Problem Relation Age of Onset - other (heart disease) Maternal Grandmother - Diabetes Paternal Grandfather - other (mvp) Father - other (milk allergy) Father Social History Tobacco Use - Smoking status: Never Smoker - Smokeless tobacco: Never Used Substance Use Topics - Alcohol use: Not on file - Drug use: Not on file Review of Systems Constitutional: Positive for fever and malaise/fatigue. Negative for appetite change, diaphoresis, fatigue and weight loss. HENT: Positive for congestion, rhinorrhea and sore throat. Negative for ear pain, hoarse voice, postnasal drip, sneezing and trouble swallowing. Eyes: Negative for photophobia, pain, discharge, redness, itching and visual disturbance. Respiratory: Positive for cough. Negative for apnea, hemoptysis, sputum production, choking, chest tightness, shortness of breath and wheezing. Cardiovascular: Negative for chest pain, dyspnea on exertion and PND. Gastrointestinal: Negative for abdominal pain, diarrhea, heartburn, nausea and vomiting. Musculoskeletal: Negative for myalgias. Skin: Negative for color change, pallor, rash and wound. Allergic/Immunologic: Negative for environmental allergies, food allergies and immunocompromised state. Neurological: Negative for dizziness, facial asymmetry and headaches. Hematological: Negative for adenopathy. Does not bruise/bleed easily. Psychiatric/Behavioral: Negative for agitation and behavioral problems. Objective BP 132/80 Pulse 98 Temp 37.1 ?C (98.7 ?F) Resp 16 Wt 50.8 kg (112 lb) SpO2 97% Physical Exam Vitals and nursing note reviewed. Constitutional: General: He is not in acute distress. Appearance: Normal appearance. He is not ill-appearing, toxic-appearing or diaphoretic. HENT: Head: Normocephalic and atraumatic. Right Ear: External ear normal. Left Ear: External ear normal. Nose: Nose normal. No congestion or rhinorrhea. Mouth/Throat: Mouth: Mucous membranes are moist. Pharynx: Oropharynx is clear. Posterior oropharyngeal erythema (mild posterior erythema. Uvula midline. Handling secretions) present. No oropharyngeal exudate. Eyes: General: Right eye: No discharge. Left eye: No discharge. Extraocular Movements: Extraocular movements intact. Conjunctiva/sclera: Conjunctivae normal. Pupils: Pupils are equal, round, and reactive to light. Cardiovascular: Rate and Rhythm: Normal rate and regular rhythm. Pulses: Normal pulses. Heart sounds: Normal heart sounds. No murmur heard. No friction (more content not included)... Normal [facility] ROUTINE FLU A/B + RSVon 01-26 FLUAV RNA JANICE+probe Ql (Unsp spec) Negative Normal Negative for Influenza A by RT-PCR [facility] Comment on above: Order Comment: Speci men Type: SWAB OF INTERNAL NOSE Ordering Facility: [facility] Address: [address] [place] [address] Performed By: #### 9 4500-6, RTFRSV #### [facility] CLIA [id number] [address] [place] [address] [place] FLUBV RNA JANICE+probe Ql (Unsp spec) Negative Normal Negative for Influenza B by RT-PCR [facility] Comment on above: Order Comment: Speci men Type: SWAB OF INTERNAL NOSE Ordering Facility: [facility] Address: [address] [place] [address] Performed By: #### 9 4500-6, RTFRSV #### [facility] CLIA [id number] [address] [place] [address] [place] RSV A RNA JANICE+probe Ql (Unsp spec) Negative Normal Negative for Respiratory Syncytial Virus (RSV) by PCR [facility] Comment on above: Order Comment: Speci men Type: SWAB OF INTERNAL NOSE Ordering Facility: [facility] Address: [address] [place] [address] Performed By: #### 9 4500-6, RTFRSV #### [facility] CLIA [id number] [address] [place] [address] [place] SARS-CoV-2 RNA Resp Ql JANICE+p shanaeaimee 02-09-2022 SARS-CoV-2 (COVID-19) RNA JANICE+probe Ql (Resp) COVID 19 RESULT: SARS-CoV-2 (Agent of COVID-19) Not Detected by RT-PCR or equivalent method. This test was developed and its performance characteristics determined by [facility] [place]. This test has been authorized by FDA under an Emergency Use Authorization (EUA). This test has been validated in accordance with the FDA's Guidance Document Policy for Diagnostics Testing in Laboratories Certified to Perform High Complexity Testing under CLIA prior to Emergency use Authorization for Coronavirus Disease 2019 during the Public Health Emergency issued on November 26, 2019. Test performed by [facility], [facility] [place], [address] [place] [address]. Normal [facility] Comment on above: Performed By: #### 9 4500-6, RTFRSV #### [facility] IA [id number] [address] [place] [address] [place] STREP A MOLECULAR (POC)on Procedural Control Valid [facility] Strep A (POCT) Negative Negative [facility]ide 12-23-2021 RONALDON Telephone (PEDSWS) DEVAN NARANJO ([id number]) 3 M Date Time Provider Department 12/23/21 FRANCISCA CORRALESS During your visit today, we recorded the following information about you: Farrah Becerra RN 12/23/2021 8:11 AM Signed Labs available to date have no clinically significant abnormalities. ?Tissue transglutaminase which is a celiac lab is still pending Francisca Corrales MD Message left for parent to return call. Farrah Esparza LPN 12/23/2021 8:26 AM Signed Mom was notified of advice and/or results. Allergies As of Date: 12/23/2021 Noted Allergy Reaction SULFA (SULFONAMIDE ANTIBIOTICS) 02/20/2015 2 - Rash Date Reviewed: 12/20/2021 Reviewed by: Jaye Farley Ma - Fully Assessed Reason for Visit: Results [95] Prescriptions as of 12/23/2021 - Doxycycline Monohydrate (ORACEA) 40 mg capsule - ACZONE 7.5 % glwp APPLY TO THE FACE AT NIGHT. Problem List As Of Date: 12/23/2021 (None) Encounter Status:Closed by MARGUERITE ESPARZA LPN on 12/23/21 Normal [facility] CBC W Auto Differential pane l (Bld)on 12-20-2021 Basophils (Bld) [#/Vol] 0.06 10*3/uL Normal <0.11 [facility] Comment on above: Order Comment: Speci men Type: BLOOD SPECIMEN Ordering Facility: [facility] Address: [address] [place] [address] Performed By: #### 1 988-5, FERR, 68976-1, 3 #### [facility] CLIA [id number] [address] [place] [address] [place] Basophils/100 WBC (Bld) 0.9 % Normal [facility] Comment on above: Order Comment: Speci men Type: BLOOD SPECIMEN Ordering Facility: [facility] Address: [address] [place] [address] Performed By: #### 1 988-5, FERR, 14210-0, 3015-3 #### [facility] CLIA [id number] [address] [place] [address] [place] Differential cell count method Nom (Bld) Auto Normal [facility] Comment on above: Order Comment: Speci men Type: BLOOD SPECIMEN Ordering Facility: [facility] Address: [address] [place], [place] [id number] Performed By: #### 1 988-5, FERR, , 3015-3 #### [facility] CLIA [id number] [address] [place] [address] [place] Eosinophils (Bld) [#/Vol] 0.16 10*3/uL Normal <0.46 [facility] Comment on above: Order Comment: Speci men Type: BLOOD SPECIMEN Ordering Facility: [facility] Address: [address] [place], [place] [id number] Performed By: #### 1 988-5, FERR, , 3015-11 #### [facility] CLIA [id number] [address] [place] [address] [place] Eosinophils/100 WBC (Bld) 2.5 % Normal [facility] Comment on above: Order Comment: Speci men Type: BLOOD SPECIMEN Ordering Facility: [facility] Address: [address] [place] [address] Performed By: #### 1 988-5, FERR, , 3 #### [facility] CLIA [id number] [address] [place] [address] [place] Erythrocyte distribution width (RBC) [Ratio] 11.5 % Normal 11.5-15.0 [facility] Comment on above: Order Comment: Speci men Type: BLOOD SPECIMEN Ordering Facility: [facility] Address: [address] [place], [place] [id number] Performed By: #### 1 988-5, FERR, , 3 #### [facility] CLIA [id number] [address] [place] [address] [place] Hematocrit (Bld) [Volume fraction] 46.2 % Normal 39.0-51.0 [facility] Comment on above: Order Comment: Speci men Type: BLOOD SPECIMEN Ordering Facility: [facility] Address: [address] [place] [address] Performed By: #### 1 988-5, FERR, , 3 #### [facility] CLIA [id number] [address] [place] [address] [place] Hemoglobin (Bld) [Mass/Vol] 15.9 g/dL Normal 13.0-17.0 [facility] Comment on above: Order Comment: Speci men Type: BLOOD SPECIMEN Ordering Facility: [facility] Address: [address] [place] [address] Performed By: #### 1 988-5, FERR, , 3015-11 #### [facility] CLIA [id number] [address] [place] [address] [place] IMMATURE GRAN % 0.2 % Normal [facility] Comment on above: Order Comment: Speci men Type: BLOOD SPECIMEN Ordering Facility: [facility] Address: [address] [place] [address] Performed By: #### 1 988-5, FERR, , 3 #### [facility] CLIA [id number] [address] [place] [address] [place] IMMATURE GRAN ABS <0.03 Normal <0.04 [facility] Comment on above: Order Comment: Speci men Type: BLOOD SPECIMEN Ordering Facility: [facility] Address: [address] [place] [address] Performed By: #### 1 988-5, FERR, , 3015-3 #### [facility] CLIA [id number] [address] [place] [address] [place] Lymphocytes (Bld) [#/Vol] 2.39 10*3/uL Normal 1.00-4.00 [facility] Comment on above: Order Comment: Speci men Type: BLOOD SPECIMEN Ordering Facility: [facility] Address: [address] [place] [address] Performed By: #### 1 988-5, FERR, 04518-4, 3015-3 #### [facility] CLIA [id number] [address] [place] [address] [place] Lymphocytes/100 WBC (Bld) 37.2 % Normal [facility] Comment on above: Order Comment: Speci men Type: BLOOD SPECIMEN Ordering Facility: [facility] Address: [address] [place] [address] Performed By: #### 1 988-5, FERR, 95577-8, 3015-3 #### [facility] CLIA [id number] [address] [place] [address] [place] MCH (RBC) [Entitic mass] 31.4 pg Normal 26.0-34.0 [facility] Comment on above: Order Comment: Speci men Type: BLOOD SPECIMEN Ordering Facility: [facility] Address: [address] [place] [address] Performed By: #### 1 988-5, FERR, 81711-3, 3015-3 #### [facility] CLIA [id number] [address] [place] [address] [place] MCHC (RBC) [Mass/Vol] 34.4 g/dL Normal 30.5-36.0 [facility] Comment on above: Order Comment: Speci men Type: BLOOD SPECIMEN Ordering Facility: [facility] Address: [address] [place] [address] Performed By: #### 1 988-5, FERR, 54650-4, 3015-3 #### [facility] CLIA [id number] [address] [place] [address] [place] MCV (RBC) [Entitic vol] 91.1 fL Normal 80.0-100.0 [facility] Comment on above: Order Comment: Speci men Type: BLOOD SPECIMEN Ordering Facility: [facility] Address: [address] [place], [place] [address] Performed By: #### 1 988-5, FERR, , 3015-3 #### [facility] CLIA [id number] [address] [place] [address] [place] Monocytes (Bld) [#/Vol] 0.39 10*3/uL Normal <0.87 [facility] Comment on above: Order Comment: Speci men Type: BLOOD SPECIMEN Ordering Facility: [facility] Address: [address] [place], [place] [address] Performed By: #### 1 988-5, FERR, , 3015-3 #### [facility] CLIA [id number] [address] [place] [address] [place] Monocytes/100 WBC (Bld) 6.1 % Normal [facility] Comment on above: Order Comment: Speci men Type: BLOOD SPECIMEN Ordering Facility: [facility] Address: [address] [place] [address] Performed By: #### 1 988-5, FERR, , 3015-3 #### [facility] CLIA [id number] [address] [place] [address] [place] Neutrophils (Bld) [#/Vol] 3.42 10*3/uL Normal 1.45-7.50 [facility] Comment on above: Order Comment: Speci men Type: BLOOD SPECIMEN Ordering Facility: [facility] Address: [address] [place], [place] [address] Performed By: #### 1 988-5, FERR, , 3015-3 #### [facility] CLIA [id number] [address] [place] [address] [place] Neutrophils/100 WBC (Bld) 53.1 % Normal [facility] Comment on above: Order Comment: Speci men Type: BLOOD SPECIMEN Ordering Facility: [facility] Address: [address] [place], [place] [address] Performed By: #### 1 988-5, FERR, , 3015-3 #### [facility] CLIA [id number] [address] [place] [address] [place] Nucleated RBC (Bld) [#/Vol] 10*3/uL Normal <0.01 [facility] Comment on above: Order Comment: Speci men Type: BLOOD SPECIMEN Ordering Facility: [facility] Address: [address] [place], [place] [address] Performed By: #### 1 988-5, FERR, , 3015-3 #### [facility] CLIA [id number] [address] [place] [address] [place] Nucleated RBC/100 WBC (Bld) [Ratio] 0.0 /100 WBC Normal [facility] Comment on above: Order Comment: Speci men Type: BLOOD SPECIMEN Ordering Facility: [facility] Address: [address] [place], [place] [address] Performed By: #### 1 988-5, FERR, , 3015-3 #### [facility] CLIA [id number] [address] [place] [address] [place] Platelet mean volume (Bld) [Entitic vol] 11.1 fL Normal 9.0-12.7 [facility] Comment on above: Order Comment: Speci men Type: BLOOD SPECIMEN Ordering Facility: [facility] Address: [address] [place], [place] [address] Performed By: #### 1 988-5, FERR, , 3015-3 #### [facility] CLIA [id number] [address] [place] [address] [place] Platelets (Bld) [#/Vol] 248 10*3/uL Normal 150-400 [facility] Comment on above: Order Comment: Speci men Type: BLOOD SPECIMEN Ordering Facility: [facility] Address: [address] [place] [address] Performed By: #### 1 988-5, FERR, 94428-5, 3016-3 #### [facility] CLIA [id number] [address] [place] [address] [place] RBC (Bld) [#/Vol] 5.07 10*6/uL Normal 4.20-6.00 [facility] Comment on above: Order Comment: Speci men Type: BLOOD SPECIMEN Ordering Facility: [facility] Address: [address] [place] [address] Performed By: #### 1 988-5, FERR, 10088-0, 3016-3 #### [facility] CLIA [id number] [address] [place] [address] [place] WBC (Bld) [#/Vol] 6.43 10*3/uL Normal 3.70-11.00 [facility] Comment on above: Order Comment: Speci men Type: BLOOD SPECIMEN Ordering Facility: [facility] Address: [address] [place] [address] Performed By: #### 1 988-5, FERR, 71366-3, 3016-3 #### [facility] CLIA [id number] [address] [place] [address] [place] CNOVon 12-20-2021 CNOV Office Visit (PEDSWS ) DEVAN NARANJO ([id number]) 3 M Date Time Provider Department 12/20/21 3:00 PM FRANCISCA CORRALES During your visit today, we recorded the following information about you: Temperature Pulse Respiration Weight 98.4 degrees 74/minute 16/minute 53.6 kg Francisca Corrales MD 12/29/2021 8:00 PM Signed 16-year-old male presents to the office today with multiple complaints. He has complaints of left wrist pain present for 1 week. The pain is diffuse along the volar and dorsal surface of the wrist. He denies any injury. He denies wrist stiffness, erythema or swelling over the last week. Over the last several years the patient states he has bilateral thigh and lower leg pain. The discomfort is intermittent. It is not associated with ankle or knee swelling or erythema. Family medical history is significant for mother with a diagnosis of Quan-Danlos syndrome. Diagnosis was made at the [facility]. REVIEW OF SYSTEMS: GENERAL: Fever - No Chills - No Night sweats - No Anorexia - No Weight loss - No Change in energy level - No, Some Lymphadenopathy - No HEAD, EYES: Dry eyes - No Eye pain - No Eye redness - No Eye sensitivity to light - No Visual loss - No Last eye exam - Summer 2020 EARS, NOSE, AND THROAT: Mouth ulcers - No Nasal ulcers - No Dry mouth - No Nosebleeds - No Recurrent sinus infections - No Recurrent ear infections - No CARDIOVASCULAR: Chest pain - Some Chest tightness- Some Color changes in fingers or toes - No EXTREMITY: Edema (swelling) - No Intermittent claudication (pain with walking) - No PULMONARY: Cough - No Shortness of breath - Some, only with activity Wheeze - No Hemoptysis - No Orthopnea - No GASTROINTESTINAL: Abdominal pain - No Nausea - No Vomiting - No Diarrhea - No Constipation - No Blood in stool - No Black stool - No Heartburn/Reflux - Some Difficulty swallowing - No GENITOURINARY: Pain on urination - No Blood in urine - No Penile or vaginal ulcers - No ENDOCRINE: Abnormal menses - N/A Heat or cold intolerance - No MUSCULOSKELETAL: Joint pain - Some Joint swelling - No Joint redness - No Joint warmth - No Morning stiffness - Yes Muscle aches - Yes Weakness - Yes SKIN: Facial rashes - No Rash - No Urticaria - No Nail pits - No Sensitivity to light - No Hair loss or thinning - No HEMATOLOGIC: Easy bruising or bleeding - No Petechiae - No NEUROLOGIC: Headache - No Numbness/Tingling - No Abnormal movements - No Memory impairment - No Change in mental status/concentration - No PSYCHOLOGICAL: Depression - No Anxiety - Yes SLEEP: Sleep disturbance - No Non-restorative sleep - No Time to bed: 12MN Time awakening in morninAM There is no problem list on file for this patient. PAST MEDICAL HISTORY Diagnosis Date - NEGATIVE HISTORY OF 8-12-10 normal color vision - Routine or ritual circumcision PAST SURGICAL HISTORY Procedure Laterality Date - CIRCUMCISION W/CLAMP/OTH DEV W/BLOCK ALLERGIES Allergen Reactions - Sulfa (Sulfonamide * Rash 12/20/21 1450 Pulse: 74 Resp: 16 Temp: 36.9 ?C (98.4 ?F) TempSrc: Temporal Weight: 53.6 kg (118 lb 3.2 oz) GENERAL: alert and active in no apparent distress, nontoxic-appearing HEAD: Normocephalic, atraumatic EYES: EOM's intact, conjunctiva without injection or discharge OROPHARYNX:moist mucous membranes, tonsils without hypertrophy and no exudates present NECK: Negative for anterior or posterior cervical adenopathy CARDIOVASCULAR : Regular Rate and Rhythm without murmurs or clicks, well perfused LUNGS: clear to auscultation, excellent air exchange, resonant to percussion, easy respirations without grunting/flaring/retrac ting. ABDOMEN : Abdomen is soft, nontender, without organomegaly or masses. No guarding or rebound. Bowel sounds are intact in all 4 quadrants. MUSCULOSKELETAL:+Passiv karine dorsiflex the 5th metacarpophalangeal joint by at least 90 degrees, + Oppose the thumb to the volar aspect of the ipsilateral forearm, no other Beighton criteria EXTREMITIES: Normal exam of the extremities. No clubbing, cyanosis, or edema. 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 Course of illness/condition and rationale for further investigation and evaluation= discussed. I spent a total of 30 minutes on the date of the service which included preparing to see the patient, [id number] corazon (more content not included)... Normal [facility] CRP SerPl-mCncon 12-20-2021 CRP [Mass/Vol] mg/L Normal <0.9 [facility] Comment on above: Order Comment: Speci men Type: BLOOD SPECIMEN Ordering Facility: [facility] Address: [address] [place] [address] Performed By: #### 1 988-5, FERR, 37406-1, 3016-3 #### [facility] CLIA [id number] [address] [place] [address] [place] Comprehensive metabolic 2000 panelon 12-20-2021 Albumin [Mass/Vol] 5.0 g/dL High 3.2-4.5 [facility] Comment on above: Order Comment: Speci men Type: BLOOD SPECIMEN Ordering Facility: [facility] Address: [address] [place] [address] Performed By: #### 1 988-5, FERR, 65252-6, 3016-3 #### [facility] CLIA [id number] [address] [place] [address] [place] ALP [Catalytic activity/Vol] 92 U/L Normal 55-149 [facility] Comment on above: Order Comment: Speci men Type: BLOOD SPECIMEN Ordering Facility: [facility] Address: [address] [place] [address] Performed By: #### 1 988-5, FERR, 19588-0, 3016-3 #### [facility] CLIA [id number] [address] [place] [address] [place] ALT [Catalytic activity/Vol] 15 U/L Normal 10-54 [facility] Comment on above: Order Comment: Speci men Type: BLOOD SPECIMEN Ordering Facility: [facility] Address: [address] [place] [address] Result Comment: Refe rence ranges for this patient's age group have not been established. These reference ranges reflect verified or established ranges for the adult population. Interpret these ranges with caution using the clinical context and additional reference resources. Performed By: #### 1 988-5, FERR, 84537-2, 3015-3 #### [facility] CLIA [id number] [address] [place] [address] [place] Anion gap [Moles/Vol] 14 mmol/L Normal 9-18 [facility] Comment on above: Order Comment: Specblanca lamas Type: BLOOD SPECIMEN Ordering Facility: [facility] Address: [address] [place] [address] Result Comment: Refe rence ranges for this patient's age group have not been established. These reference ranges reflect verified or established ranges for the adult population. Interpret these ranges with caution using the clinical context and additional reference resources. Performed By: #### 1 988-5, FERR, 04282-6, 3015-3 #### [facility] CLIA [id number] [address] [place] [address] [place] AST [Catalytic activity/Vol] 21 U/L Normal 14-40 [facility] Comment on above: Order Comment: Mariel lamas Type: BLOOD SPECIMEN Ordering Facility: [facility] Address: [address] [place] [address] Result Comment: Refe rence ranges for this patient's age group have not been established. These reference ranges reflect verified or established ranges for the adult population. Interpret these ranges with caution using the clinical context and additional reference resources. Performed By: #### 1 988-5, FERR, 19881-9, 3015-3 #### [facility] CLIA [id number] [address] [place] [address] [place] Bilirubin [Mass/Vol] 0.3 mg/dL Normal 0.2-1.3 [facility] Comment on above: Order Comment: Mariel lamas Type: BLOOD SPECIMEN Ordering Facility: [facility] Address: [address] [place], [place] [address] Result Comment: Refe rence ranges for this patient's age group have not been established. These reference ranges reflect verified or established ranges for the adult population. Interpret these ranges with caution using the clinical context and additional reference resources. Performed By: #### 1 988-5, FERR, 51546-2, 3015-3 #### [facility] CLIA [id number] [address] [place] [address] [place] Calcium [Mass/Vol] 9.7 mg/dL Normal 8.4-10.2 [facility] Comment on above: Order Comment: Speci men Type: BLOOD SPECIMEN Ordering Facility: [facility] Address: [facility] [address] Performed By: #### 1 988-5, SUGEY, 36399-7, 3015-3 #### [facility] CLIA [id number] [address] [place] [address] [place] Chloride [Moles/Vol] 99 mmol/L Normal 97-105 [facility] Comment on above: Order Comment: Speci men Type: BLOOD SPECIMEN Ordering Facility: [facility] Address: [facility] [address] Performed By: #### 1 988-5, SUGEY, , 3015-3 #### [facility] CLIA [id number] [address] [place] [address] [place] CO2 [Moles/Vol] 25 mmol/L Normal 22-30 [facility] Comment on above: Order Comment: Speci men Type: BLOOD SPECIMEN Ordering Facility: [facility] Address: [facility] [address] Result Comment: Refe rence ranges for this patient's age group have not been established. These reference ranges reflect verified or established ranges for the adult population. Interpret these ranges with caution using the clinical context and additional reference resources. Performed By: #### 1 988-5, FERR, 00148-0, 3015-3 #### [facility] CLIA [id number] [address] [place] [address] [place] Creatinine [Mass/Vol] 0.70 mg/dL Low 0.73-1.22 [facility] Comment on above: Order Comment: Mariel lamas Type: BLOOD SPECIMEN Ordering Facility: [facility] Address: [address] [place] [address] Result Comment: Refe rence ranges for this patient's age group have not been established. These reference ranges reflect verified or established ranges for the adult population. Interpret these ranges with caution using the clinical context and additional reference resources. Performed By: #### 1 988-5, FERR, 42260-8, 3016-3 #### [facility] CLIA [id number] [address] [place] [address] [place] ESTIMATED GLOMERULAR FILTRATION RATE Normal [facility] Comment on above: Order Comment: Mariel lamas Type: BLOOD SPECIMEN Ordering Facility: [facility] Address: [address] [place], [place] [address] Result Comment: Kim mated Glomerular Filtration Rate (eGFR) in pediatric patients, 2-17 years old, can be calculated using the Bedside Torres formula based on a stable serum creatinine and height. The creatinine assay has been calibrated to be traceable to isotope dilution-mass spectrometry. Refer to KDIGO guidelines for clinical interpretation. In patients with unstable renal function, e.g. those with acute kidney injury, the eGFR may not accurately reflect actual GFR. Bedside Torres equation = 0.413 x [height (cm) / serum creatinine (mg/dL)] Performed By: #### 1 988-5, FERR, 50935-0, 3016-3 #### [facility] CLIA [id number] [address] [place] [address] [place] Glucose [Mass/Vol] 81 mg/dL Normal 74-99 [facility] Comment on above: Order Comment: Mariel lamas Type: BLOOD SPECIMEN Ordering Facility: [facility] Address: [address] [place] [address] Result Comment: The [place] [employer] (ADA) provides guidance for cutoff values for fasting glucose and random glucose. The ADA defines fasting as no caloric intake for at least 8 hours. Fasting plasma glucose results between 100 to 125 mg/dL indicate increased risk for diabetes (prediabetes). Fasting plasma glucose results greater than or equal to 126 mg/dL meet the criteria for diagnosis of diabetes. In the absence of unequivocal hyperglycemia, results should be confirmed by repeat testing. In a patient with classic symptoms of hyperglycemia or hyperglycemic crisis, random plasma glucose results greater than or equal to 200 mg/dL meet the criteria for diagnosis of diabetes. Reference: Standards of Medical Care in Diabetes 2016, [place] [employer]. Diabetes Care. 2016.39(Suppl 1). Performed By: #### 1 988-5, FERR, 95288-6, 6-3 #### [facility] CLIA [id number] [address] [place] [address] [place] Potassium [Moles/Vol] 4.2 mmol/L Normal 3.7-5.1 [facility] Comment on above: Order Comment: Mariel lamas Type: BLOOD SPECIMEN Ordering Facility: [facility] Address: [address] [place] [address] Result Comment: Refe rence ranges for this patient's age group have not been established. These reference ranges reflect verified or established ranges for the adult population. Interpret these ranges with caution using the clinical context and additional reference resources. Performed By: #### 1 988-5, FERR, 16223-1, 6-3 #### [facility] CLIA [id number] [address] [place], [place] [address] [place] Protein [Mass/Vol] 7.7 g/dL Normal 6.4-8.3 [facility] Comment on above: Order Comment: Mariel lamas Type: BLOOD SPECIMEN Ordering Facility: [facility] Address: [address] [place], [place] [address] Performed By: #### 1 988-5, FERR, 97312-8, 3016-3 #### [facility] CLIA [id number] [address] [place] [address] [place] Sodium [Moles/Vol] 138 mmol/L Normal 136-144 [facility] Comment on above: Order Comment: Speci men Type: BLOOD SPECIMEN Ordering Facility: [facility] Address: [address] [place] [address] Performed By: #### 1 988-5, FERR, 65773-8, 3016-3 #### [facility] CLIA [id number] [address] [place] [address] [place] Urea nitrogen [Mass/Vol] 9 mg/dL Normal 5-18 [facility] Comment on above: Order Comment: Speci men Type: BLOOD SPECIMEN Ordering Facility: [facility] Address: [address] [place] [address] Performed By: #### 1 988-5, FERR, 60922-2, 3016-3 #### [facility] CLIA [id number] [address] [place] [address] [place] FERRITIN BLDon 12-20-2021 Ferritin [Mass/Vol] 46.4 ng/mL Normal 30.3-565.7 [facility] Comment on above: Order Comment: Speci men Type: BLOOD SPECIMEN Ordering Facility: [facility] Address: [address] [place] [address] Performed By: #### 1 988-5, FERR, 55756-9, 3016-3 #### [facility] CLIA [id number] [address] [place] [address] [place] IGA BLDon 12-20-2021 IgA [Mass/Vol] 198 mg/dL Normal 61-348 [facility] Comment on above: Order Comment: Speci men Type: BLOOD SPECIMEN Ordering Facility: [facility] Address: [address] [place] [address] Performed By: #### I GA #### [facility] CLIA [id number] [address] [place] [address] [place] TSH SerPl-aCncon 12-20-2021 TSH Qn 1.520 m[IU]/L Normal 0.510-4.300 [facility] Comment on above: Order Comment: Specblanca lamas Type: BLOOD SPECIMEN Ordering Facility: [facility] Address: [address] [place] [address] Result Comment: Refe rence ranges were not locally established for this patient's age group. The normal values are based on the following source: Carlos W, Kane Delaney. Reference Ranges for Adults and Children: Pre-analytical Considerations. [facility] Performed By: #### 1 988-5, FERR, 65918-0, 3015-3 #### [facility] CLIA [id number] [address] [place] [address] tTG IgA Qn (S)on 12-20-2021 TRANSGLUTAMINASE IGA QUAL Negative Normal Negative, Test not Indicated [facility] Comment on above: Order Comment: Mariel lamas Type: BLOOD SPECIMEN Ordering Facility: [facility] Address: [address] [place] [address] Result Comment: The following results were obtained with the [facility] [employer] QAUNTA Lite h-tTG IgA MELIDA. h-tTG IgA values obtained with different manufacturers' assay methods may not be used interchangeable. The magnitude of the reported IgA levels cannot be correlated to an endpoint titer. This is used as an aid in diagnosis of celiac disease. Clinical correlation is required. Performed By: #### 1 988-5, FERR, 57604-9, 3015-3 #### [facility] CLIA [id number] [address] [place] [address] [place] tTG IgA Ser-aCncon 2 tTG IgA Qn (S) 9 Units Normal <20 [facility] Comment on above: Order Comment: Mariel lamas Type: BLOOD SPECIMEN Ordering Facility: [facility] Address: [address] [place] [address] Performed By: #### 1 988-5, FERR, 70002-8, 6-3 #### [facility] CLIA [id number] [address] [place] [address] [place] Vital Signs Date Time Vital Sign Value Performing Clinician Liu miranda 03-18-2022 11:04-0400 Body temperature 98.6 [degF] Francisca Corrales MD Work Phone: [facility] 03-18-2022 11:04-0400 Body weight 51.44 kg Francisca Corrales MD Work Phone: [facility] 03-18-2022 11:04-0400 Heart rate 72 /min Francisca Corrales MD Work Phone: [facility] 03-18-2022 11:04-0400 Respiratory rate 16 /min Francisca Corrales MD Work Phone: [facility] 02-09-2022 12:59-0400 Body temperature 98.71 [degF] Janae Moser ANIMAL HUSBANDRY TEACHER.BOAT DISPATCHER Work Phone: [facility] 02-09-2022 12:59-0400 Body weight 50.8 kg Janae Moser ANIMAL HUSBANDRY TEACHER.BOAT DISPATCHER Work Phone: [facility] 02-09-2022 12:59-0400 Diastolic blood pressure 80 mm[Hg] Janae Moser ANIMAL HUSBANDRY TEACHER.BOAT DISPATCHER Work Phone: [facility] 02-09-2022 12:59-0400 Heart rate 98 /min Janae Moser ANIMAL HUSBANDRY TEACHER.BOAT DISPATCHER Work Phone: [facility] 02-09-2022 12:59-0400 Respiratory rate 16 /min Janae Moser ANIMAL HUSBANDRY TEACHER.BOAT DISPATCHER Work Phone: [facility] 02-09-2022 12:59-0400 SaO2% (BldA) [Mass fraction] 97 % Janae Moser ANIMAL HUSBANDRY TEACHER.BOAT DISPATCHER Work Phone: [facility] 02-09-2022 12:59-0400 Systolic blood pressure 132 mm[Hg] Janae Moser ANIMAL HUSBANDRY TEACHER.BOAT DISPATCHER Work Phone: [facility] Encounters Encounter Date Encounter Type Care Provider Facility Start: 10-25-2022 ambulatory Francisca Corrales MD Work Phone: [facility] Comment on above: Immunizations for Co llege Start: 08-06-2022 End: 08-06-2022 ambulatory FRANCISCA Arnoldo SAVANNA Facility:[facility] Start: 03-18-2022 End: 03-18-2022 ambulatory FRANCISCA Mclaughlin SAVANNA Facility:[facility] Start: 03-18-2022 End: 03-18-2022 Patient encounter procedure Francisca Corrales MD Work Phone: [facility] [place] Comment on above: Nasal congestion (Pr imary Dx) Start: 02-09-2022 End: 02-09-2022 ambulatory FRANCISCA CORRALES Facility:[facility] Start: 02-09-2022 End: 02-09-2022 Patient encounter procedure Janae Moser APRN.BOAT DISPATCHER Work Phone: [facility] Comment on above: Pharyngitis, unspeci fied etiology (Primary Dx); Viral illness Start: 12-23-2021 Telephone encounter Francisca astudillo MD Work Phone: [facility] [place] Comment on above: Results Start: 12-20-2021 End: 12-20-2021 ambulatory FRANCISCA CORRALES Facility:[facility] Start: 12-19-2021 ambulatory Francisca Corrales MD Work Phone: [facility] Comment on above: Musculoskeletal Prob marlo Procedures Date Procedure Procedure Detail Performing Clinician Start: 02-09-2022 STREP A MOLECULAR (POC) Janae Moser APRN.BOAT DISPATCHER Work Phone: Start: 04-22-2021 Adult depression screening assessment Francisca Corrales MD Work Phone: Plan of Treatment Date Care Activity Detail Author Start: 05-31-2025 Urine microalbumin profile DTAP,TDAP,TD (7 - Td or Tdap) [facility] Start: 09-28-2022 DEPRESSION ASSESSMENT DEPRESSION ASS ESSMENT [facility] Start: 05-29-2022 Influenza vaccination INFLUENZA (#1) [facility] Start: 04-22-2022 Adult depression screening assessment DEPRESSION SCREENING [facility] Start: 2022 HEPATITIS C SCREENING HEPATITIS C SC EDINSON [facility] Start: 2022 HIV SCREENING HIV SCREENING [facility] Start: 02-09-2022 End: 02-23-2022 COVID, FLU A/B + RSV, ROUTINE [facility] Work Phone: Comment on above: Expected: 02/09/2022 , Expires: 02/23/2022 Start: 05-29-2021 Influenza vaccination INFLUENZA (#1) [facility] Start: 2018 PEDS TO ADULT TRANSI TION ANNUAL ASSESSMENT PEDS TO ADULT TRANSITION ANNUAL ASSESSMENT [facility] Start: 2014 MENINGOCOCCAL B: Consider based on risk (1 of 2 - Risk Bexsero 2-dose series) MENINGOCOCCAL B: Consider based on risk (1 of 2 - Risk Bexsero 2-dose series) [facility] ROUTINE FLU A/B + RSV ROUTINE FL U A/B + RSV Lab Routine Pharyngitis, unspecified etiology Viral illness 02/09/2022 1:22 PM EDT [facility] Work Phone: SARS-CoV-2 (COVID-19 ) RNA [Presence] in Respiratory specimen by JANICE with probe detection 2019 CORONAVIRUS Microbiology Routine Pharyngitis, unspecified etiology Viral illness 02/09/2022 1:22 PM EDT [facility] Work Phone: [facility] Immunizations Immunization Date Immunization Notes Care Provider [facility] 06-18-2020 influenza, injectabl e, quadrivalent, contains preservative Francisca Corrales MD Work Phone: [facility] 06-18-2020 meningococcal polysaccharide (groups A, C, Y and W-135) diphtheria toxoid conjugate vaccine (MCV4P) Francisca Corrales MD Work Phone: [facility] 07-03-2018 influenza, injectabl e, quadrivalent, contains preservative Francisca Corrales MD Work Phone: [facility] Work Phone: 05-27-2018 Human Papillomavirus 9-valent vaccine Francisca Corrales MD Work Phone: [facility] 07-04-2017 influenza, injectabl e, quadrivalent, contains preservative Francisca Corrales MD Work Phone: [facility] 05-26-2017 Human Papillomavirus 9-valent vaccine Francisca Corrales MD Work Phone: [facility] 07-04-2016 influenza, injectabl e, quadrivalent, contains preservative Francisca Corrales MD Work Phone: [facility] 06-30-2015 influenza, injectabl e, quadrivalent, contains preservative Francisca Corrales MD Work Phone: [facility] Work Phone: 05-31-2015 meningococcal polysaccharide (groups A, C, Y and W-135) diphtheria toxoid conjugate vaccine (MCV4P) Francisca Corrales MD Work Phone: [facility] 05-31-2015 tetanus toxoid, redu pacheco diphtheria toxoid, and acellular pertussis vaccine, adsorbed Francisca Corrales MD Work Phone: [facility] 07-17-2014 influenza, injectabl e, quadrivalent, preservative free Francisca Corrales MD Work Phone: [facility] 07-09-2013 influenza virus vacc ine, live, attenuated, for intranasal use Francisca Corrales MD Work Phone: [facility] Work Phone: 06-19-2012 influenza virus vacc ine, live, attenuated, for intranasal use Francisca Corrales MD Work Phone: [facility] Work Phone: 06-21-2011 influenza virus vacc ine, live, attenuated, for intranasal use Francisca Corrales MD Work Phone: [facility] Work Phone: 06-29-2010 influenza virus vacc ine, live, attenuated, for intranasal use Francisca Corrales MD Work Phone: [facility] 03-26-2010 varicella virus vaccine Francisca Corrales MD Work Phone: [facility] Work Phone: 06-18-2009 influenza virus vacc ine, live, attenuated, for intranasal use Francisca Corrales MD Work Phone: [facility] Work Phone: 05-14-2009 diphtheria, tetanus toxoids and acellular pertussis vaccine Francisca Corrales MD Work Phone: [facility] Work Phone: 05-14-2009 measles, mumps and rubella virus vaccine Francisca Corrales MD Work Phone: [facility] Work Phone: 05-14-2009 poliovirus vaccine, inactivated Francisca Corrales MD Work Phone: [facility] Work Phone: 06-22-2008 influenza virus vacc ine, live, attenuated, for intranasal use Francisca Corrales MD Work Phone: [facility] Work Phone: 07-27-2007 influenza virus vacc ine, unspecified formulation Francisca Corrales MD Work Phone: [facility] Work Phone: 08-06-2006 influenza virus vacc ine, unspecified formulation Francisca Corrales MD Work Phone: [facility] Work Phone: 07-29-2005 influenza virus vacc ine, unspecified formulation Francisca Corrales MD Work Phone: [facility] Work Phone: 07-07-2005 diphtheria, tetanus toxoids and acellular pertussis vaccine Francisca Corrales MD Work Phone: [facility] Work Phone: 07-07-2005 varicella virus vaccine Francisca Corrales MD Work Phone: [facility] Work Phone: 04-07-2005 haemophilus influenz ae type b vaccine, HbOC conjugate Francisca Corrales MD Work Phone: [facility] Work Phone: 04-07-2005 measles, mumps and rubella virus vaccine Francisca Corrales MD Work Phone: [facility] Work Phone: 04-07-2005 pneumococcal conjuga te vaccine, 7 valent Francisca Corrales MD Work Phone: [facility] Work Phone: 2004 DTaP-hepatitis B and poliovirus vaccine Francisca Corrales MD Work Phone: [facility] Work Phone: 2004 haemophilus influenz ae type b vaccine, HbOC conjugate Francisca Corrales MD Work Phone: [facility] Work Phone: 2004 pneumococcal conjuga te vaccine, 7 valent Francisca Corrales MD Work Phone: [facility] Work Phone: 2004 diphtheria, tetanus toxoids and acellular pertussis vaccine Francisca Corrales MD Work Phone: [facility] Work Phone: 2004 haemophilus influenz ae type b vaccine, HbOC conjugate Francisca Corrales MD Work Phone: [facility] Work Phone: 2004 pneumococcal conjuga te vaccine, 7 valent Francisca Corrales MD Work Phone: [facility] Work Phone: 2004 poliovirus vaccine, inactivated Francisca Corrales MD Work Phone: [facility] Work Phone: 2004 DTaP-hepatitis B and poliovirus vaccine Francisca Corrales MD Work Phone: [facility] Work Phone: 2004 haemophilus influenz ae type b vaccine, HbOC conjugate Francisca Corrales MD Work Phone: [facility] Work Phone: 2004 pneumococcal conjuga te vaccine, 7 valent Francisca Corrales MD Work Phone: [facility] Work Phone: 2004 hepatitis B vaccine, pediatric or pediatric/adolescent dosage Francisca Corrales MD Work Phone: [facility] Work Phone: Payers Date Payer Category Payer Private Health Insurance AETNA A ETNA CHOICE POS II [id number] 2020-[facility] [phone] [address] [place] [address] POS [id number] 2011 Private Health Insurance AETNA A ETNA CHOICE POS II [id number] 2011-Present [phone] [address] [place] [address] POS [id number] 2011 Private Health Insurance [id number] Social History Date Type Detail Facility Start: 08-06-2022 Tobacco smoking stat [facility] Never smoked tobacco [facility] Work Phone: Start: 04-22-2021 End: 08-06-2022 Alcohol intake Not Asked [facility] Start: 04-20-2021 History SDOH Physica l Activity DPW 0 [facility] Start: 04-20-2021 History SDOH Financial 5 [facility] Start: 04-20-2021 History SDOH Food Worry 1 [facility] Start: 04-20-2021 History SDOH Transpo rt Med 2 [facility] Start: 2004 Sex Assigned At Not on file [facility] Start: 12-09-2021 End: 02-09-2022 Exposure to SARS-CoV-2 (event) Not sure [facility] Work Phone: Start: 08-06-2022 Tobacco use and exposure Smokeless tobacco non-user [facility] Clinical Notes 12-19-2021 to 08-06-2022 Francisca Corrales MD - 03/18/2022 11:00 AM EDTPatient Neela Moser APRN.BOAT DISPATCHER - 02/09/2022 1:04 PM EDTTelephone Encounter - Marguerite Esparza LPN - 12/23/2021 8:24 AM EDT Note Date & Type Note Facility 08-06-2022 Influenza virus A and B RNA and SARS-CoV-2 (COVID-19) N gene panel JANICE+probe (Resp) COVID 19 RESULT: SARS-CoV-2 (Agent of COVID-19) Not Detected by RT-PCR or equivalent method. esther [id number] (SAMUEL)_EUA This test was developed and its performance characteristics determined by [facility]'s [facility] [place]. This test has been authorized by FDA under an Emergency Use Authorization (EUA). This test has been validated in accordance with the FDA's Guidance Document Policy for Diagnostics Testing in Laboratories Certified to Perform High Complexity Testing under CLIA prior to Emergency use Authorization for Coronavirus Disease 2019 during the Public Health Emergency issued on November 26, 2019. Test performed by [facility], [facility] [place], [address] [place] [address]. INFLUENZA A PCR: Negative for Influenza A by RT-PCR INFLUENZA B PCR: Negative for Influenza B by RT-PCR [facility] Comment on above: Performed By: #### 1 [id number], FERR, [id number], [id number] #### [facility] CLIA [id number] [address] [place], [place] [address] [address] [place] 08-06-2022 Note HNO ID: [id number] Author: Tate Cruz APRN.BOAT DISPATCHER Service: ? Author Type: Nurse Practitioner Type: Progress Notes Filed: 08/06/2022 11:41 AM Note Text: Subjective HPI Nontoxic-appearing male presents urgent care accompanied by mother. Chief complaint of upper respiratory tract like infection. Duration of symptoms 3 days. Associated symptoms sore throat, nasal congestion, nasal discharge and nonproductive cough. Patient denies the use of any jeqg-ryn-rieybjz medications or home remedies for symptom management toady. Did use Mucinex DM yesterday. This did help. Patient states recent sick contacts with similar signs and symptoms. Patient denies any productive cough, fever, chest pain, shortness of breath, pleuritic pain, rash, abdominal pain, nausea, vomiting or change in bowel or bladder habit. Past medical history prescription medication use allergies reviewed. .Patient presents with: Cough: Cough, congestion and ST x 3 days PAST MEDICAL HISTORY Diagnosis Date NEGATIVE HISTORY OF 8-12-10 normal color vision Routine or ritual circumcision PAST SURGICAL HISTORY Procedure Laterality Date CIRCUMCISION W/CLAMP/OTH DEV W/BLOCK ALLERGIES Sulfa (Sulfonamide Antibiotics) MEDICATIONS Doxycycline Monohydrate (ORACEA) 40 mg capsule (Patient not taking: Reported on 04/22/2021 ) ACZONE 7.5 % glwp APPLY TO THE FACE AT NIGHT. (Patient not taking: Reported on 04/22/2021) FAMILY HISTORY Problem Relation Age of Onset other (heart disease) Maternal Grandmother Diabetes Paternal Grandfather other (mvp) Father other (milk allergy) Father Social History Tobacco Use Smoking status: Never Smokeless tobacco: Never BP 104/78 Pulse 104 Temp 36.7 ?C (98 ?F) (Tympanic) Resp 16 Wt 52.5 kg (115 lb 12.8 oz) SpO2 97% Review of Systems Constitutional: Positive for malaise/fatigue. Negative for chills and fever. HENT: Positive for congestion and sore throat. Negative for ear discharge, ear pain and sinus pain. Eyes: Negative for blurred vision, pain, discharge and redness. Respiratory: Positive for cough. Negative for hemoptysis, sputum production, shortness of breath, wheezing and stridor. Cardiovascular: Negative for chest pain. Gastrointestinal: Negative for abdominal pain, diarrhea, nausea and vomiting. Musculoskeletal: Positive for myalgias. Skin: Negative for itching and rash. Neurological: Negative for dizziness and headaches. Objective Physical Exam Constitutional: General: He is not in acute distress. Appearance: He is not diaphoretic. HENT: Head: Normocephalic. Right Ear: Tympanic membrane, ear canal and external ear normal. Left Ear: Tympanic membrane, ear canal and external ear normal. Nose: Congestion present. Mouth/Throat: Mouth: Mucous membranes are moist. Pharynx: Oropharynx is clear. No oropharyngeal exudate or posterior oropharyngeal erythema. Eyes: Conjunctiva/sclera: Conjunctivae normal. Pupils: Pupils are equal, round, and reactive to light. Cardiovascular: Rate and Rhythm: Normal rate and regular rhythm. Heart sounds: Normal heart sounds. Pulmonary: Effort: Pulmonary effort is normal. No tachypnea, accessory muscle usage or respiratory distress. Breath sounds: Normal breath sounds. No stridor. No wheezing, rhonchi or rales. Abdominal: General: There is no distension. Palpations: Abdomen is soft. Tenderness: There is no abdominal tenderness. There is no guarding or rebound. Musculoskeletal: Cervical back: Normal range of motion and neck supple. No rigidity or tenderness. Lymphadenopathy: Cervical: No cervical adenopathy. Skin: General: Skin is warm and dry. Neurological: Mental Status: He is alert and oriented to person, place, and time. ASSESSMENT/PLAN: 1. Pharyngitis, unspecified etiology - ICD9: 462, ICD10: J02.9 (primary diagnosis) - STREP A MOLECULAR (POC) - COVID WITH FLUA+B, ROUTINE 2. Viral illness - ICD9: 079.99, ICD10: B34.9 - COVID WITH FLUA+B, ROUTINE Strep test negative. COVID-19 influenza test ordered. Results pending. Will treat as viral cause at this time. Conservative therapies will be implemented. Alternative diagnosis discussed. Supportive therapies discussed. We will follow-up with PCP 3 to 5 days symptoms are not improving. Red flags for prompt reevaluation discussed. Will be seen in urgent care or ED for any new or worsening or symptoms lasting longer than anticipated. Patient verbalized understand agrees with plan of care. Tate Cruz APRN.[facility] 03-18-2022 Note HNO ID: [id number] Author: Francisca Corrales MD Service: ? Author Type: Physician Type: Progress Notes Filed: 03/31/2022 2:28 PM Note Text: 18-year-old male presents to the office today with his mother for concerns of chronic nasal congestion present for 1 month. Additional symptoms include maxillary sinus pressure. He denies the symptoms are consistent with a headache. Patient was seen in urgent care on February 09, 2022. COVID testing was negative. Patient was prescribed a course of oral prednisone. Outside urgent care and prescribed Augmentin. Prescription date appears to be 03/01/2022 based on care everywhere. Additionally the patient is using [id number] nasal steroids and saline. None of these have provided him any relief. No fevers are present No eye injection or discharge is present No otalgia is present. There is no problem list on file for this patient. PAST MEDICAL HISTORY Diagnosis Date - NEGATIVE HISTORY OF 10 normal color vision - Routine or ritual circumcision PAST SURGICAL HISTORY Procedure Laterality Date - CIRCUMCISION W/CLAMP/OTH DEV W/BLOCK ALLERGIES Allergen Reactions - Sulfa (Sulfonamide * Rash 06/21/22 1104 Pulse: 72 Resp: 16 Temp: 37 ?C (98.6 ?F) TempSrc: Temporal Weight: 51.4 kg (113 lb 6.4 oz) Physical examination of the head, neck, external ears, mouth and face fail to demonstrate any significant abnormality or assymetry to critical face to face observation. The salivary glands were normal. Facial motion was intact. NOSE: Examination of the nasal chamber revealed no significant abnormalities of the nasal septum, turbinates or meati. The mucosa was healthy and the airway was satisfactory. Clear nasal discharge is present. I do not appreciate any nasal polyps. MOUTH: Examination of the mouth included the lips, teeth, gums, hard and soft palate, tongue, floor of the mouth, and buccal mucosa were healthy to inspection and the mucosa was moist. OROPHARYNX: Examination of the oropharynx, including the soft palate, tonsillar fossa and posterior pharyngeal bone were unremarkable and symmetrical. NECK: Inspection and palpation of the neck revealed no scars, masses crepitation or asymmetries. The thyroid was not palpable and was free of masses. EARS: Otoscoptic examination of the external canal, tympanic membrane and middle ear was unremarkable. Tympanic membranes are intact. Impression: Nasal congestion (primary encounter diagnosis) Plan: Flonase OTC, 2 sprays to each nostril once daily Discussed the importance of proper technique to maximize effectiveness Helpful tips for NASAL SPRAY use 1. Start by gently blowing your nose 2. Sit in a chair, with your knees hip width apart, lean forward (as demonstrated in clinic) Face looking straight down at the ground. 3. Insert nozzle into the right nostril and aim toward the tip of your right ear (do not aim straight up) 4. Squirt once At this time you can close your left nostril and lightly sniff the medication in through your right nostril. 5. THEN insert nozzle into the left nostril and aim toward the tip of your left ear. 6. squirt once At this time you can close your left nostril and lightly sniff the medication in through your right nostril. 7. Repeat step # 4 above ,if advised to take 2 squirts. 8. Keep leaning forward, facing down at the ground for 5 minutes. 9. Do this at bedtime daily--may do it in the Morning if you prefer, but be regular AND consistent. 10. May substitute with Saline spray x 5days, for nose bleeds. I spent a total of 25 minutes on the date of the service which included preparing to see the patient, ucwq-cn-znai patient care, completing clinical documentation, obtaining and/or reviewing separately obtained history, performing a medically appropriate examination, counseling and educating the patient/family/caregiver and ordering medications, tests, or procedures. Follow-up No improvement in 3 to 4 weeks refer to ENT Francisca Corrales MD [facility] Department of Pediatrics, [facility] 03-18-2022 History of Present illness Narrative 18-year-old male presents to the office today with his mother for concerns of chronic nasal congestion present for 1 month. Additional symptoms include maxillary sinus pressure. He denies the symptoms are consistent with a headache. Patient was seen in urgent care on February 09, 2022. COVID testing was negative. Patient was prescribed a course of oral prednisone. Outside urgent care and prescribed Augmentin. Prescription date appears to be 03/01/2022 based on care everywhere. Additionally the patient is using jqlz-gcq-[id number] nasal steroids and saline. None of these have provided him any relief. No fevers are present No eye injection or discharge is present No otalgia is present. There is no problem list on file for this patient. PAST MEDICAL HISTORY Diagnosis Date NEGATIVE HISTORY OF 8-12-10 normal color vision Routine or ritual circumcision PAST SURGICAL HISTORY Procedure Laterality Date CIRCUMCISION W/CLAMP/OTH DEV W/BLOCK ALLERGIES Allergen Reactions Sulfa (Sulfonamide * Rash 03/18/22 1104 Pulse: 72 Resp: 16 Temp: 37 C (98.6 F) TempSrc: Temporal Weight: 51.4 kg (113 lb 6.4 oz) Physical examination of the head, neck, external ears, mouth and face fail to demonstrate any significant abnormality or assymetry to critical face to face observation. The salivary glands were normal. Facial motion was intact. NOSE: Examination of the nasal chamber revealed no significant abnormalities of the nasal septum, turbinates or meati. The mucosa was healthy and the airway was satisfactory. Clear nasal discharge is present. I do not appreciate any nasal polyps. MOUTH: Examination of the mouth included the lips, teeth, gums, hard and soft palate, tongue, floor of the mouth, and buccal mucosa were healthy to inspection and the mucosa was moist. OROPHARYNX: Examination of the oropharynx, including the soft palate, tonsillar fossa and posterior pharyngeal bone were unremarkable and symmetrical. NECK: Inspection and palpation of the neck revealed no scars, masses crepitation or asymmetries. The thyroid was not palpable and was free of masses. EARS: Otoscoptic examination of the external canal, tympanic membrane and middle ear was unremarkable. Tympanic membranes are intact. Impression: Nasal congestion (primary encounter diagnosis) Plan: Flonase OTC, 2 sprays to each nostril once daily Discussed the importance of proper technique to maximize effectiveness Helpful tips for NASAL SPRAY use 1. Start by gently blowing your nose 2. Sit in a chair, with your knees hip width apart, lean forward (as demonstrated in clinic) Face looking straight down at the ground. 3. Insert nozzle into the right nostril and aim toward the tip of your right ear (do not aim straight up) 4. Squirt once At this time you can close your left nostril and lightly sniff the medication in through your right nostril. 5. THEN insert nozzle into the left nostril and aim toward the tip of your left ear. 6. squirt once At this time you can close your left nostril and lightly sniff the medication in through your right nostril. 7. Repeat step # 4 above ,if advised to take 2 squirts. 8. Keep leaning forward, facing down at the ground for 5 minutes. 9. Do this at bedtime daily--may do it in the Morning if you prefer, but be regular & consistent. 10. May substitute with Saline spray x 5days, for nose bleeds. I spent a total of 25 minutes on the date of the service which included preparing to see the patient, [id number] patient care, completing clinical documentation, obtaining and/or reviewing separately obtained history, performing a medically appropriate examination, counseling and educating the patient/family/caregiver and ordering medications, tests, or procedures. Follow-up No improvement in 3 to 4 weeks refer to ENT Francisca Corrales MD [facility] Department of Pediatrics, [facility] documented in this encounter [facility] 02-09-2022 Note HNO ID: [id number] Author: Janae Moser APRN.BOAT DISPATCHER Service: ? Author Type: Nurse Practitioner Type: Progress Notes Filed: 02/09/2022 1:37 PM Note Text: This note was created using NoteWriter. Subjective Devan Naranjo is a 16 year old male. 16 year old male with no PMH presents with complaints of illness. Acute onset one week ago +fever 99.9 +dry harsh cough +Chest congestion +sore throat Denies eye, nose, or ear complaints. Denies N/V/D. +fatigue Denies body aches. Has used Tylenol Cold and Flu with mild relief. Denies ill contacts. The history is provided by the patient. No high school foreign language tutor was used. URI He complains of cough. There is no chest tightness, difficulty breathing, frequent throat clearing, hemoptysis, hoarse voice, shortness of breath, sputum production or wheezing. This is a new problem. The current episode started in the past 7 days. The problem occurs constantly. The problem has been gradually worsening. The cough is non-productive. Associated symptoms include a fever, malaise/fatigue, nasal congestion, rhinorrhea and a sore throat. Pertinent negatives include no appetite change, chest pain, dyspnea on exertion, ear congestion, ear pain, headaches, heartburn, myalgias, orthopnea, PND, postnasal drip, sneezing, sweats, trouble swallowing or weight loss. His symptoms are aggravated by nothing. His symptoms are alleviated by nothing. He reports no improvement on treatment. There are no known risk factors for lung disease. There is no history of asthma, bronchiectasis, bronchitis, COPD, emphysema or pneumonia. PAST MEDICAL HISTORY Diagnosis Date - NEGATIVE HISTORY OF 8-12-10 normal color vision - Routine or ritual circumcision PAST SURGICAL HISTORY Procedure Laterality Date - CIRCUMCISION W/CLAMP/OTH DEV W/BLOCK ALLERGIES Sulfa (Sulfonamide Antibiotics) MEDICATIONS predniSONE (DELTASONE) 10 mg tablet Take 4 tabs daily for 3 days, then 2 tabs daily for 3 days, then 1 tab daily for 3 days with food. Doxycycline Monohydrate (ORACEA) 40 mg capsule ACZONE 7.5 % glwp APPLY TO THE FACE AT NIGHT. FAMILY HISTORY Problem Relation Age of Onset - other (heart disease) Maternal Grandmother - Diabetes Paternal Grandfather - other (mvp) Father - other (milk allergy) Father Social History Tobacco Use - Smoking status: Never Smoker - Smokeless tobacco: Never Used Substance Use Topics - Alcohol use: Not on file - Drug use: Not on file Review of Systems Constitutional: Positive for fever and malaise/fatigue. Negative for appetite change, diaphoresis, fatigue and weight loss. HENT: Positive for congestion, rhinorrhea and sore throat. Negative for ear pain, hoarse voice, postnasal drip, sneezing and trouble swallowing. Eyes: Negative for photophobia, pain, discharge, redness, itching and visual disturbance. Respiratory: Positive for cough. Negative for apnea, hemoptysis, sputum production, choking, chest tightness, shortness of breath and wheezing. Cardiovascular: Negative for chest pain, dyspnea on exertion and PND. Gastrointestinal: Negative for abdominal pain, diarrhea, heartburn, nausea and vomiting. Musculoskeletal: Negative for myalgias. Skin: Negative for color change, pallor, rash and wound. Allergic/Immunologic: Negative for environmental allergies, food allergies and immunocompromised state. Neurological: Negative for dizziness, facial asymmetry and headaches. Hematological: Negative for adenopathy. Does not bruise/bleed easily. Psychiatric/Behavioral: Negative for agitation and behavioral problems. Objective BP 132/80 Pulse 98 Temp 37.1 ?C (98.7 ?F) Resp 16 Wt 50.8 kg (112 lb) SpO2 97% Physical Exam Vitals and nursing note reviewed. Constitutional: General: He is not in acute distress. Appearance: Normal appearance. He is not ill-appearing, toxic-appearing or diaphoretic. HENT: Head: Normocephalic and atraumatic. Right Ear: External ear normal. Left Ear: External ear normal. Nose: Nose normal. No congestion or rhinorrhea. Mouth/Throat: Mouth: Mucous membranes are moist. Pharynx: Oropharynx is clear. Posterior oropharyngeal erythema (mild posterior erythema. Uvula midline. Handling secretions) present. No oropharyngeal exudate. Eyes: General: Right eye: No discharge. Left eye: No discharge. Extraocular Movements: Extraocular movements intact. Conjunctiva/sclera: Conjunctivae normal. Pupils: Pupils are equal, round, and reactive to light. Cardiovascular: Rate and Rhythm: Normal rate and regular rhythm. Pulses: Normal pulses. Heart sounds: Normal heart sounds. No murmur heard. No friction rub. No gallop. Pulmonary: Effort: Pulmonary effort is normal. No respiratory distress. Breath sounds: Normal breath sounds. No stridor. No wheezing, rhonchi or rales. Chest: Chest wall: No tenderness. Abdominal: General: Abdomen is flat. There is no distension. Palpat (more content not included)... [facility] 02-09-2022 Instructions Janae Moser APRN.RONALDO - 02/09/2022 1:28 PM EDT Pharyngitis, unspecified etiology (primary encounter diagnosis) Viral illness You have been diagnosed with an illness caused by a virus. Antibiotics do not cure viral infections. If given when not needed, antibiotics can be harmful. The treatments described below will help you feel better while your body's own defenses are fighting the virus. General Instructions: Drink extra water and juice. Use a cool mist vaporizer or saline nasal spray to relieve congestion. For Sore throats, use ice chips or sore throat spray; lozenges for older children and adults. Specific Medications: Fever, aches, ear pain: Use medicines according to the package instructions or as directed by your healthcare provider. Stop the medication when the symptoms get better. No follow-ups on file. documented in this encounter [facility] 02-09-2022 History of Present illness Narrative This note was created using VOZter. Subjective Devanfelisa Naranjo is a 16 year old male. 16 year old male with no PMH presents with complaints of illness. Acute onset one week ago +fever 99.9 +dry harsh cough +Chest congestion +sore throat Denies eye, nose, or ear complaints. Denies N/V/D. +fatigue Denies body aches. Has used Tylenol Cold and Flu with mild relief. Denies ill contacts. The history is provided by the patient. No high school foreign language tutor was used. URI He complains of cough. There is no chest tightness, difficulty breathing, frequent throat clearing, hemoptysis, hoarse voice, shortness of breath, sputum production or wheezing. This is a new problem. The current episode started in the past 7 days. The problem occurs constantly. The problem has been gradually worsening. The cough is non-productive. Associated symptoms include a fever, malaise/fatigue, nasal congestion, rhinorrhea and a sore throat. Pertinent negatives include no appetite change, chest pain, dyspnea on exertion, ear congestion, ear pain, headaches, heartburn, myalgias, orthopnea, PND, postnasal drip, sneezing, sweats, trouble swallowing or weight loss. His symptoms are aggravated by nothing. His symptoms are alleviated by nothing. He reports no improvement on treatment. There are no known risk factors for lung disease. There is no history of asthma, bronchiectasis, bronchitis, COPD, emphysema or pneumonia. PAST MEDICAL HISTORY Diagnosis Date NEGATIVE HISTORY OF 05-09-10 normal color vision Routine or ritual circumcision PAST SURGICAL HISTORY Procedure Laterality Date CIRCUMCISION W/CLAMP/OTH DEV W/BLOCK ALLERGIES Sulfa (Sulfonamide Antibiotics) MEDICATIONS predniSONE (DELTASONE) 10 mg tablet Take 4 tabs daily for 3 days, then 2 tabs daily for 3 days, then 1 tab daily for 3 days with food. Doxycycline Monohydrate (ORACEA) 40 mg capsule ACZONE 7.5 % glwp APPLY TO THE FACE AT NIGHT. FAMILY HISTORY Problem Relation Age of Onset other (heart disease) Maternal Grandmother Diabetes Paternal Grandfather other (mvp) Father other (milk allergy) Father Social History Tobacco Use Smoking status: Never Smoker Smokeless tobacco: Never Used Substance Use Topics Alcohol use: Not on file Drug use: Not on file Review of Systems Constitutional: Positive for fever and malaise/fatigue. Negative for appetite change, diaphoresis, fatigue and weight loss. HENT: Positive for congestion, rhinorrhea and sore throat. Negative for ear pain, hoarse voice, postnasal drip, sneezing and trouble swallowing. Eyes: Negative for photophobia, pain, discharge, redness, itching and visual disturbance. Respiratory: Positive for cough. Negative for apnea, hemoptysis, sputum production, choking, chest tightness, shortness of breath and wheezing. Cardiovascular: Negative for chest pain, dyspnea on exertion and PND. Gastrointestinal: Negative for abdominal pain, diarrhea, heartburn, nausea and vomiting. Musculoskeletal: Negative for myalgias. Skin: Negative for color change, pallor, rash and wound. Allergic/Immunologic: Negative for environmental allergies, food allergies and immunocompromised state. Neurological: Negative for dizziness, facial asymmetry and headaches. Hematological: Negative for adenopathy. Does not bruise/bleed easily. Psychiatric/Behavioral: Negative for agitation and behavioral problems. Objective BP 132/80 Pulse 98 Temp 37.1 C (98.7 F) Resp 16 Wt 50.8 kg (112 lb) SpO2 97% Physical Exam Vitals and nursing note reviewed. Constitutional: General: He is not in acute distress. Appearance: Normal appearance. He is not ill-appearing, toxic-appearing or diaphoretic. HENT: Head: Normocephalic and atraumatic. Right Ear: External ear normal. Left Ear: External ear normal. Nose: Nose normal. No congestion or rhinorrhea. Mouth/Throat: Mouth: Mucous membranes are moist. Pharynx: Oropharynx is clear. Posterior oropharyngeal erythema (mild posterior erythema. Uvula midline. Handling secretions) present. No oropharyngeal exudate. Eyes: General: Right eye: No discharge. Left eye: No discharge. Extraocular Movements: Extraocular movements intact. Conjunctiva/sclera: Conjunctivae normal. Pupils: Pupils are equal, round, and reactive to light. Cardiovascular: Rate and Rhythm: Normal rate and regular rhythm. Pulses: Normal pulses. Heart sounds: Normal heart sounds. No murmur heard. No friction rub. No gallop. Pulmonary: Effort: Pulmonary effort is normal. No respiratory distress. Breath sounds: Normal breath sounds. No stridor. No wheezing, rhonchi or rales. Chest: Chest wall: No tenderness. Abdominal: General: Abdomen is flat. There is no distension. Palpations: Abdomen is soft. There is no mass. Tenderness: There is no abdominal tenderness. There is no guarding or rebound. Hernia: No hernia is present. Musculoskeletal: General: No swelling, tenderness, deformity or signs of injury. Normal range of motion. Cervical back: Normal range of motion and neck supple. No rigidity or tenderness. Right lower leg: No edema. Left lower leg: No edema. Lymphadenopathy: Cervical: No cervical adenopathy. Skin: General: Skin is warm and dry. Capillary Refill: Capillary refill takes less than 2 seconds. Coloration: Skin is not jaundiced or pale. Findings: No bruising, lesion or rash. Neurological: General: No focal deficit present. Mental Status: He is alert and oriented to person, place, and time. Cranial Nerves: No cranial nerve deficit. Sensory: No sensory deficit. Motor: No weakness. Coordination: Coordination normal. Gait: Gait normal. Deep Tendon Reflexes: Reflexes normal. Psychiatric: Mood and Affect: Mood normal. Behavior: Behavior normal. Thought Content: Thought content normal. Assessment and Plan ASSESSMENT/PLAN: 1. Pharyngitis, unspecified etiology - ICD9: 462, ICD10: J02.9 (primary diagnosis) - suspect viral - Alere Strep Test NEGATIVE, no culture pending - Discussed supportive care treatment with fluids, rest and analgesia. - The patient may also use OTC cough and cold meds as needed, warm salt water gargles, throat lozenges and/or OTC throat spray as needed and nasal saline gtts and suction prn. - Contagious dz precautions discussed- including considered contagious until on antibiotics for 24 hours - The patient should follow up in 3-5 days if symptoms persist or worsen - Call back if drooling, increased temperature, symptoms of dehydration and/or still sick in one week RX Prednisone - COVID, FLU A/B + RSV, ROUTINE - STREP A MOLECULAR (POC) - 2019 CORONAVIRUS - ROUTINE FLU A/B + RSV 2. Viral illness - ICD9: 079.99, ICD10: B34.9 - Discussed viral etiology and rationale for treatment. - Symptomatic treatment with prn analgesia - Supportive care with fluids and rest - The patient may also use OTC cough and cold meds as needed and warm salt water gargles, throat lozenges and/or OTC throat spray as needed. - Follow up in 3-5 days if symptoms persist or sooner if worsening of symptoms - COVID, FLU A/B + RSV, ROUTINE - STREP A MOLECULAR (POC) - 2019 CORONAVIRUS - ROUTINE FLU A/B + RSV Janae Moser APRN.BOAT DISPATCHER documented in this encounter [facility] 12-23-2021 Miscellaneous Notes Mom was notified of advice and/or results. Images from the original note were not included. Labs available to date have no clinically significant abnormalities. Tissue transglutaminase which is a celiac lab is still pending Francisca Corrales MD Message left for parent to return call. Farrah Becerra RN documented in this encounter [facility] 12-20-2021 Note HNO ID: [id number] Author: Francisca Corrales MD Service: ? Author Type: Physician Type: Progress Notes Filed: 12/29/2021 8:00 PM Note Text: 16-year-old male presents to the office today with multiple complaints. He has complaints of left wrist pain present for 1 week. The pain is diffuse along the volar and dorsal surface of the wrist. He denies any injury. He denies wrist stiffness, erythema or swelling over the last week. Over the last several years the patient states he has bilateral thigh and lower leg pain. The discomfort is intermittent. It is not associated with ankle or knee swelling or erythema. Family medical history is significant for mother with a diagnosis of Quan-Danlos syndrome. Diagnosis was made at the [facility]. REVIEW OF SYSTEMS: GENERAL: Fever - No Chills - No Night sweats - No Anorexia - No Weight loss - No Change in energy level - No, Some Lymphadenopathy - No HEAD, EYES: Dry eyes - No Eye pain - No Eye redness - No Eye sensitivity to light - No Visual loss - No Last eye exam - Summer 2020 EARS, NOSE, AND THROAT: Mouth ulcers - No Nasal ulcers - No Dry mouth - No Nosebleeds - No Recurrent sinus infections - No Recurrent ear infections - No CARDIOVASCULAR: Chest pain - Some Chest tightness- Some Color changes in fingers or toes - No EXTREMITY: Edema (swelling) - No Intermittent claudication (pain with walking) - No PULMONARY: Cough - No Shortness of breath - Some, only with activity Wheeze - No Hemoptysis - No Orthopnea - No GASTROINTESTINAL: Abdominal pain - No Nausea - No Vomiting - No Diarrhea - No Constipation - No Blood in stool - No Black stool - No Heartburn/Reflux - Some Difficulty swallowing - No GENITOURINARY: Pain on urination - No Blood in urine - No Penile or vaginal ulcers - No ENDOCRINE: Abnormal menses - N/A Heat or cold intolerance - No MUSCULOSKELETAL: Joint pain - Some Joint swelling - No Joint redness - No Joint warmth - No Morning stiffness - Yes Muscle aches - Yes Weakness - Yes SKIN: Facial rashes - No Rash - No Urticaria - No Nail pits - No Sensitivity to light - No Hair loss or thinning - No HEMATOLOGIC: Easy bruising or bleeding - No Petechiae - No NEUROLOGIC: Headache - No Numbness/Tingling - No Abnormal movements - No Memory impairment - No Change in mental status/concentration - No PSYCHOLOGICAL: Depression - No Anxiety - Yes SLEEP: Sleep disturbance - No Non-restorative sleep - No Time to bed: 12MN Time awakening in morninAM There is no problem list on file for this patient. PAST MEDICAL HISTORY Diagnosis Date - NEGATIVE HISTORY OF 810 normal color vision - Routine or ritual circumcision PAST SURGICAL HISTORY Procedure Laterality Date - CIRCUMCISION W/CLAMP/OTH DEV W/BLOCK ALLERGIES Allergen Reactions - Sulfa (Sulfonamide * Rash 12/20/21 1450 Pulse: 74 Resp: 16 Temp: 36.9 ?C (98.4 ?F) TempSrc: Temporal Weight: 53.6 kg (118 lb 3.2 oz) GENERAL: alert and active in no apparent distress, nontoxic-appearing HEAD: Normocephalic, atraumatic EYES: EOM's intact, conjunctiva without injection or discharge OROPHARYNX:moist mucous membranes, tonsils without hypertrophy and no exudates present NECK: Negative for anterior or posterior cervical adenopathy CARDIOVASCULAR : Regular Rate and Rhythm without murmurs or clicks, well perfused LUNGS: clear to auscultation, excellent air exchange, resonant to percussion, easy respirations without grunting/flaring/retracting. ABDOMEN : Abdomen is soft, nontender, without organomegaly or masses. No guarding or rebound. Bowel sounds are intact in all 4 quadrants. MUSCULOSKELETAL:+Passively dorsiflex the 5th metacarpophalangeal joint by at least 90 degrees, + Oppose the thumb to the volar aspect of the ipsilateral forearm, no other Beighton criteria EXTREMITIES: Normal exam of the extremities. No clubbing, cyanosis, or edema. 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 Course of illness/condition and rationale for further investigation and evaluation= discussed. I spent a total of 30 minutes on the date of the service which included preparing to see the patient, [id number] patient care, completing clinical documentation, obtaining and/or reviewing separately obtained history, performing a medically appropriate examination, counseling and educating the patient/family/caregiver and ordering medications, tests, or procedures. Follow- (more content not included)... [facility] 12-19-2021 Miscellaneous Notes Reason for Disposition [1] Weakness is a chronic problem (recurrent or ongoing) AND [2] not getting worse Answer Assessment - Initial Assessment Questions 1. DESCRIPTION: What is the weakness like? Just feels weak and bones hurt 2. LOCATION: Where is the weakness located? Wrist 3. SEVERITY: How bad is the weakness? What does it keep your child from doing? Can she walk normally? Moderate 4. ONSET: When did it begin? Has been approx 2 weeks 5. CAUSE: What do you think is causing the weakness? Unsure 6. CHILD'S APPEARANCE: How sick is your child acting? What is he doing right now? If asleep, ask: How was he acting before he went to sleep? Can you wake him up? Still going to school Protocols used: WEAKNESS (GENERALIZED) AND [id number] documented in this encounter [facility] Evaluation note Diagnosis Pharyngitis, unspecified etiology- Primary Viral illness Unspecified viral infection, in conditions classified elsewhere and of unspecified site [facility] Nasal congestion- Primary Other diseases of nasal cavity and sinuses documented in this encounter [facility] Health Concerns Infection Onset Date Last Indicated Resolved Time COVID-19 Rule-Out 02/09/2022 02/09/2022 Summary Purpose Family History No Family History Records Found Advance Directives No Advanced Directives Records Found Additional Source Comments Source Comments (unrecognize d section and content) In the event this informatio n is protected by the Federal Confidentiality of Alcohol and Drug Abuse Patient Records regulations: The Federal rules restrict any use of the information to criminally investigate or prosecute any alcohol or drug abuse patient.[facility] event this information is protected by the Federal Confidentiality of Alcohol and Drug Abuse Patient Records regulations: The Federal rules restrict any use of the information to criminally investigate or prosecute any alcohol or drug abuse patient.[facility] the event this information is protected by the Federal Confidentiality of Alcohol and Drug Abuse Patient Records regulations: The Federal rules restrict any use of the information to criminally investigate or prosecute any alcohol or drug abuse patient.[facility] the event this information is protected by the Federal Confidentiality of Alcohol and Drug Abuse Patient Records regulations: The Federal rules restrict any use of the information to criminally investigate or prosecute any alcohol or drug abuse patient.[facility] the event this information is protected by the Federal Confidentiality of Alcohol and Drug Abuse Patient Records regulations: The Federal rules restrict any use of the information to criminally investigate or prosecute any alcohol or drug abuse patient.[facility] Reason for Visit (unrecogniz ed section and content) Reason Comments Musculoskeletal Problem Reason Comments Results Reason Comments Chest Congestion cough, sore throat a nd fever x 1 week Reason Comments Sinus Problem ongoing x1 month - w as seen in the [facility] 3 weeks ago - started on augmentin - starte to help some but still having symptoms Care Teams (unrecognized sec tion and content) Infection Prevention Coordinator Relationship Specialty Start Date End Date Francisca Corrales MD [facility] [place] [address] PCP - General 04 Infection Prevention Coordinator Relationship Specialty [place] [address] [place] [id number] PCP - General 04 Infection Prevention Coordinator Relationship Specialty Start Date End Date Francisca Corrales MD [address] [place], [place] [id number] PCP - General 04 Infection Prevention Coordinator Relationship Specialty Start Date End Date Francisca Corrales MD [facility] [place], [place] [id number] PCP - General 04 (unrecognized sect ion and content) No Status Records Found INFORMATION SOURCE (unrecogn ized section and content) DATE CREATED AUTHOR 08/07/2022 [facility] FOR RECORDS PERTAINING TO PATIENTS WHO ARE OR HAVE BEEN ENROLLED IN A CHEMICAL DEPENDENCY/SUBSTANCEABUSE PROGRAM, SOME INFORMATION MAY BE OMITTED. This clinical summary was aggregated from multiple sources. Caution should be exercised in using it in the provision of clinical care. This summary normalizes information from multiple sources, and as a consequence, information in this document may materially change the coding, format and clinical context of patient data. In addition, data may be omitted in some cases. CLINICAL DECISIONS SHOULD BE BASED ON THE PRIMARY CLINICAL RECORDS. [facility] [employer] [facility]. provides no warranty or guarantee of the accuracy or completeness of information in this document.
== END | disposition home or self-care (01) ==
PROVIDERS: PCP Internal Medicine; Referring Provider Student in an Organized Health Care Education/Training Program; Visit Provider Student in an Organized Health Care Education/Training Program
DX: R11.2 Nausea with vomiting, unspecified (principal)
CPT/HCPCS: 78227; A9537; J2805

== ENCOUNTER → 2024-09-20 | Outpatient (CLI) | payer OTHER, SELFPAY ==
--- NOTE | 2024-09-20 08:42 | US_ITS ---
STUDY: ABDOMINAL ULTRASOUND - RIGHT UPPER QUADRANT REASON FOR VISIT: Male, 19 years old RUQ pain TECHNIQUE: Ultrasound evaluation of the right upper quadrant was performed with real-time and static zurita-scale imaging. TECHNICAL QUALITY: Adequate. COMPARISON: None. FINDINGS: Liver: The liver measures 14.1 cm. There is normal echogenicity of the liver. The bile ducts are within normal limits. There is hepatic color flow. The direction of portal flow is hepatopetal. There is no demonstrated mass lesion. Gallbladder: Normal distended gallbladder. The gallbladder wall measures 2 mm. There is a negative sonographic Doll''s sign. There is no pericholecystic fluid. There are no gallstones. Common Bile Duct (C.B.D.): The common bile duct measures 4 mm. Pancreas: Normal size of the head, body and tail of the pancreas. There is normal echogenicity of the pancreas. There is no demonstrated pancreatic mass or cyst. Right Kidney: Normal size of the right kidney. The right kidney measures 12.5 cm. Normal renal cortex. The right cortex measures 1.6 cm. There is no demonstrated renal mass or cyst. There is no right hydronephrosis. US/Gallbladder IMPRESSION: Normal right upper quadrant ultrasound examination. Electronically Signed: Dima Virk MD at 15:11 EST ,
== END | disposition home or self-care (01) ==
LOC: US 08:42
PROVIDERS: PCP Internal Medicine; Referring Provider Surgery; Visit Provider Surgery
DX: R10.11 Right upper quadrant pain (principal); R94.8 Abnormal results of function studies of other organs and systems; K82.8 Other specified diseases of gallbladder
CPT/HCPCS: 76705

== ENCOUNTER 2024-09-22 10:29 | Day surgery (SDC) | payer OTHER, SELFPAY ==
[2024-09-22] VITALS (10 sets, daily range): BP systolic 89–141; BP diastolic 47–95; PULSE 94–110; RESP 12–18; TEMP 36.4–36.9; O2SAT 93–100; BMI 18.4
--- NOTE | 2024-09-22 | IMM_PTH ---
PATIENT: DEVAN SPENCER LOC: EN U#:[id number] AGE/SX: 19/M ROOM: RE09/22/[address]: Dr. Jacky Rodgers MD : 2005 BED: DIS: 09/22/2024 SPEC #: [id number] RECD: 09/23/24 09:58 STATUS: JT MURRAY #: [id number] IVY: 09/22/24 00:[address]: Jacky Rodgers DEPT: IMMUNOHISTOCHEMISTRY RECD BY: Kevin Salgado ENTERED: 09/23/24 10:00 SP TYPE: IMMUNO OTHR DR: Dr. Adilia De Los Santos MD Tissues: Stomach, NOS Procedures: H Pylori (initial) PHYSICIAN & INSTITUTION [place] [id number] SPECIMEN INFORMATION: Tissue Source: A. Antrum Clinical Info: Abnormal biliary HIDA scan Specimen Number: [id number] CPT code: 84146 METHODOLOGY: Deparaffinized sections of prefer/formalin-fixed tissue or PAP/DQ stained slides are incubated with monoclonal/polyclonal antibodies/oligonucleotide probes. Localization is made via biotin free immunoperoxidase method. Appropriate controls are performed and reacted as expected. Results on target cell population are indicated in the following table: RESULTS: ANTIBODY / CLONE RESULT H Pylori (polyclonal) negative These tests were developed and their performance characteristics determined by [facility]. They may not have been cleared or approved by the U.S. Food and Drug Administration. The FDA has determined that such clearance or approval is not necessary. The above immunohistochemical/dualISH markers are ordered and reviewed by the Pathologist. INTERPRETATION: A. Antrum, biopsy: Negative for Helicobacter pylori organisms. 09/26/2024
--- NOTE | 2024-09-22 11:02 | PRE.ANES_ITS ---
ASA Classification* ASA Classification ASA Classification: 2 Assessment & Plan Anesthesia* Anesthesia Assessment Anesthesia Assessment: Discussed sedation and/or anesthesia options, risks, benefits, and alternatives with patient/parents/legal guardian/POA. Questions invited. The patient/parents/legal guardian/POA seems to understand and agrees to proceed with anesthesia plan. Reviewed the physical assessment, medical history, allergy history and patient home medications list prior to surgery/procedure/anesthetic and documented any changes. Performed airway and anesthesia risk assessments. Anesthesia Type Anesthesia Type: MAC Anesthesia Focused Assessment* Temperature: 98.5 F Pulse Rate: 110 Blood Pressure: 141/95 Respiratory Rate: 18 Pulse Ox: 100 Airway Assessment Mouth opens: >3 cm Mallampati Score: II Focused Labs Anesthesia Preop lab: CBC WBC 6.3 K/mm3 (4.4-11.0) 01/18/24 15:23 RBC 5.03 M/mm3 (4.6-6.2) 01/18/24 15:23 Hgb 15.3 g/dL (13.0-16.5) 01/18/24 15:23 Hct 44.8 % (40-54) 01/18/24 15:23 Plt Count 279 K/mm3 (150-450) 01/18/24 15:23 CHEMISTRY Potassium 3.6 mmol/L (3.5-5.1) 05/06/24 14:19 Sodium 138 mmol/L (136-145) 05/06/24 14:19 Magnesium 2.4 mg/dL (1.6-2.6) 03/05/23 09:28 BUN 8 mg/dL (7-18) 05/06/24 14:19 Creatinine 0.85 mg/dL (0.70-1.30) 05/06/24 14:19 Glucose 103 mg/dL (74-106) 05/06/24 14:19 TSH 0.67 uIU/mL (0.358-3.74) 05/06/24 14:19 COAG PT 14.4 SECONDS (11.7-14.9) 05/06/24 14:19 Pre-Assessment Diagnosis/Proposed Procedure Planned Operative Procedure(s): EGD WITH BIOPSY Anesthesia History Anesthesia History - manager installation: Anesthesia History - manager installation Hx Hospitalization No 09/19/24 09:53 Any Problems With Anesthesia No 09/19/24 09:53 Cholinesterase deficiency No 09/19/24 09:53 You/Your Family Experience No 09/19/24 09:53 fever (hyperthermia) with Relationship Recent Exposure to Contagious No 09/22/24 10:45 Disease Does patient have nerve No 09/19/24 09:53 stimulator Patient instructed to have device shut off --Does patient have Pacemaker No 09/22/24 10:45 or ICD? When Was Last Pacemaker Check QUESTION #4 FULL TEXT: You/Your Family Experience fever (hyperthermia) with Anesthesia Last Oral Intake Last Oral intake: Last Oral Intake NPO since 08:45 09/22/24 10:45 Meds taken in AM with sips of Yes 09/22/24 10:45 water? Meds patient instructed to ZOFRAN 09/22/24 10:45 take am of surgery PONV PONV - manager installation: PONV - manager installation Female No 09/16/24 14:10 HX of Motion Sickness Yes 09/16/24 14:10 HX of N/V After Surgery No 09/16/24 14:10 Non-Smoker Yes 09/16/24 14:10 Duration of Surgery greater No 09/16/24 14:10 than 60 minutes Number of Risk Factors 2 09/16/24 14:10 PONV Score Moderate Risk 09/16/24 14:10 Height & Weight Height & Weight: Anesthesia: Height & Weight Height 5 ft 8 in 09/22/24 10:45 Weight: 55 kg 09/22/24 10:45 Body Mass Index (BMI) 18.4 09/22/24 10:45 Respiratory Assessment Respiratory Assessment - manager installation: Respiratory Tract Infection Hx - manager installation Hx Respiratory Tract Infection No 09/19/24 09:53 STOP Sleep Apnea STOP Sleep Apnea - manager installation: STOP Sleep Apnea - manager installation Hx Hypertension No 09/19/24 09:53 Hx Sleep Apnea No 09/19/24 09:53 CPAP BIPAP Do you snore loudly (louder No 09/16/24 14:10 than talking or can be heard Do you often feel tired/ No 09/16/24 14:10 fatigued/ sleepy during daytime? Has anyone observed you stop No 09/16/24 14:10 breathing during sleep? STOP Results Negative 09/16/24 14:10 QUESTION #5 FULL TEXT : Do you snore loudly (louder than talking or can be heard through closed doors)? 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 confused, unrespo /Reproduction History /Reproductive History - manager installation: /Reproductive Hx- manager installation Hx Now No 09/16/24 14:10 Gestational Age (in weeks): EDC: Hx Hx Para Hx Section SAB No 09/19/24 09:53 PFSH Medical History Fatty liver RUQ pain Biliary dyskinesia Depression, unspecified Somatic symptom disorder History of echocardiogram Gastroesophageal reflux disease Wears contact lenses Anxiety History of steroid therapy Restless legs Shortness of breath on exertion Non-smoker Home Medications ?Medication ?Instructions ?Recorded ?Last Taken ?Type acetaminophen 325 mg tablet 325 mg PO ONCE PRN pain 05/06/24 05/12/24 History (Tylenol) cholecalciferol (vitamin D3) 125 125 mcg PO DAILY 05/06/24 05/12/24 History mcg (5,000 unit) capsule multivitamin 1 tab PO DAILY 05/06/24 05/12/24 History prochlorperazine maleate 10 mg 10 mg PO Q8H PRN nausea and 07/14/24 Unknown Rx tablet (Compazine) vomiting 30 days #30 tabs bupropion HCl 150 mg 24 hr tablet, 150 mg PO QAM #30 tabs 08/10/24 Unknown Rx extended release (Wellbutrin XL) ondansetron 4 mg disintegrating 4 mg PO Q8H PRN nausea and 09/14/24 09/22/24 Rx tablet vomiting #30 tabs pantoprazole 40 mg tablet,delayed 40 mg PO QDAY #30 tabs 09/19/24 Unknown Rx release Allergy/AdvReac Type Severity Reaction Status Date / Time Sulfa (Sulfonamide Allergy Unknown UNKNOWN Verified 09/22/24 10:45 Antibiotics) Family History Sister Anemia Anxiety Thyroid disorder Vitamin D deficiency Postural orthostatic tachycardia syndrome Mother Anxiety History of blood transfusion Raynauds disease Quan-Danlos syndrome Brother Anxiety Asthma Chiari I malformation Migraines Father Asthma Bowel disease IBS Grandfather Diabetes Heart disease Mitral valve disease Afib Grandmother Parkinsons Surgical History Hx of esophagogastroduodenoscopy History of nasal polypectomy Hx of wisdom tooth extraction Social History adopted: No household members: family housing: house number of children: 0 current occupational status: unemployed current occupational exposures/hazards: No pets and animals: Yes pets and animals: dog(s) leisure activities: games history of recent travel: No sexually active: No Smoking Status: Never smoker alcohol intake: never substance use type: does not use well-balanced diet: daily or most days caffeine: No eating out: 1-3 times/week during the past year weight has: remained stable what type of physical activity do you participate in: none seatbelt use: always do you feel safe at home: Yes Review of Systems (Anesthesia) ROS Narrative System reviewed and no additional complaints, except as documented.
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
--- NOTE | 2024-09-22 11:30 | EGD_PTH ---
PATIENT: DEVAN PSENCER LOC: EN U#:[id number] AGE/SX: 19/M ROOM: RE09/22/[address]: Dr. Jacky Rodgers MD : 2005 BED: DIS: 09/22/2024 SPEC #: [id number] RECD: 09/22/24 18:00 STATUS: JT MURRAY #: [id number] IVY: 09/22/24 11:[address]: Jacky Rodgers DEPT: SURGICAL PATHOLOGY RECD BY: Kevin Salgado ENTERED: 09/23/24 09:13 SP TYPE: EGD BIOPSY [facility] DR: Dr. Adilia De Los Santos MD Tissues: A - Stomach, NOS B - Gastric mucous membrane C - Esophageal mucous membrane D - Esophageal mucous membrane Procedures: Surgery Specimen Level IV HEADER OPERATION: EGD with biopsy, bipolar electrohomostasis PRE-OP DIAGNOSIS: Abnormal biliary HIDA scan TISSUE SUBMITTED: A. Antrum, B. Gastric body, C. Mid esophageal, D. Distal esophageal MICROSCOPIC DIAGNOSIS A. Antrum, biopsy: Mild gastritis. See microscopic description and comment. B. Gastric body, biopsy: Mild gastritis. See microscopic description. C. Mid esophageal, biopsy: Fragments of squamous mucosa with changes consistent with eosinophilic esophagitis. Chronic inflammation. See comment. D. Distal esophagus, biopsy: Fragments of squamous mucosa with changes consistent with eosinophilic esophagitis. Chronic inflammation. See comment. COMMENT A. The results of immunohistochemistry for Helicobacter pylori will be reported separately ([id number]). C & D. The specimen shows more than 20 eosinophils per high power field, consistent with eosinophilic esophagitis. MICROSCOPIC DESCRIPTION Slides are reviewed. A & B. The specimen shows fragments of gastric mucosa with chronic inflammatory cell infiltrates in the lamina propria consisting of lymphocytes and plasma cells, consistent with mild chronic gastritis. GROSS DESCRIPTION A. Received in fixative is one container labeled with the patient's name and designated Antrum biopsy. The specimen consists of two irregular fragments of light nguyen soft tissue that in aggregate measure 0.9 x 0.4 x 0.1 cm. The specimen is totally submitted in one cassette. B. Received in fixative is one container labeled with the patient's name and designated Gastric body polyp. The specimen consists of two irregular fragments of light nguyen soft tissue that in aggregate measure 0.2 x 0.2 x 0.1 and 0.9 x 0.2 x 0.2 cm. The specimen is totally submitted in one cassette. C. Received in fixative is one container labeled with the patient's name and designated Mid esophageal biopsy. The specimen consists of one irregular fragment of light nguyen soft tissue that measures 0.7 x 0.2 x 0.1 cm. The specimen is totally submitted in one cassette. D. Received in fixative is one container labeled with the patient's name and designated Distal esophageal biopsy. The specimen consists of two irregular fragments of light nguyen soft tissue that in aggregate measure 1.0 x 0.5 x 0.1 cm. The specimen is totally submitted in one cassette. 09/26/2024 TC:3 CPT:[id number]
--- NOTE | 2024-09-22 12:07 | PCM.POST.ANE ---
Anesthesia: Postop Eval I Current Vital Signs Temperature: 97.9 F Pulse Rate: 102 Blood Pressure: 91/47 Respiratory Rate: 16 Pulse Ox: 98 Oxygen Delivery Method: Room Air Assessment Airway patent: Yes Spontaneous unlabored respirations: Yes Mental status: Asleep nausea: No Vomiting: No Anesthesia Complication: No Fluid Hydration Crystalloid volume administer (ml): 60 Total IV fluid infused: 60 Progress Note Anesthesia document: Postop Eval 1 completed: Yes
--- NOTE | 2024-09-22 12:10 | OP.EGD_ITS ---
Patient Name: David Naranjo Procedure Date: 09/22/2024 11:07 AM Date of : 2005 Age: 19 Procedure: Upper GI endoscopy Indications: Follow-up of eosinophilic esophagitis Providers: Jacky Rodgers MD Medicines: See the Anesthesia note for documentation of the administered medications Patient Profile: Refer to note in patient chart for documentation of history and physical. Patient has symptoms of chronic dysphagia. Complications: No immediate complications. Estimated blood loss: Minimal. Procedure: Pre-Anesthesia Assessment: - The heart rate, respiratory rate, oxygen saturations, blood pressure, adequacy of pulmonary ventilation, and response to care were monitored throughout the procedure. After obtaining informed consent, the endoscope was passed under direct vision. Throughout the procedure, the patient's blood pressure, pulse, and oxygen saturations were monitored continuously. The Endoscope was introduced through the mouth, and advanced to the second part of duodenum. The upper GI endoscopy was accomplished without difficulty. The patient tolerated the procedure well. Scope In: 11:31:39 AM Scope Out: 11:55:01 AM Total Procedure Duration Time 0 hours 23 minutes 22 seconds Findings: No gross lesions were noted in the duodenal bulb, in the first portion of the duodenum and in the second portion of the duodenum. No biopsies or other specimens were collected for this exam. Localized mildly erythematous mucosa without bleeding was found in the gastric antrum. Biopsies were taken with a cold forceps for Helicobacter pylori testing. Estimated blood loss was minimal. Two 3 mm semi-sessile polyps with no bleeding and no stigmata of recent bleeding were found in the gastric body. Biopsies were taken with a cold forceps for histology. Estimated blood loss was minimal. The cardia and gastric fundus were normal on retroflexion. The Z-line was regular and was found 40 cm from the incisors. No biopsies or other specimens were collected for this exam. Multiple 2 to 6 mm plaques were found in the middle third of the esophagus and in the lower third of the esophagus, 23 to 35 cm from the incisors. Biopsies were taken with a cold forceps for histology. Estimated blood loss: 2 mL requiring treatment with coagulation. Impression: - No gross lesions in the duodenal bulb, in the first portion of the duodenum and in the second portion of the duodenum. No specimens collected. - Erythematous mucosa in the antrum. Biopsied. - Two gastric polyps. Biopsied. - Z-line regular, 40 cm from the incisors. No specimens collected. - Multiple plaques in the middle third of the esophagus and in the lower third of the esophagus. Biopsied. Recommendation: - Discharge patient to home (via wheelchair). - Soft diet today. - No aspirin, ibuprofen, naproxen, or other non-steroidal anti-inflammatory drugs for 2 days after biopsy. - Await pathology results. - Telephone my office for pathology results in 1 week. Procedure Code(s): --- Professional --- 74897, Esophagogastroduodenoscopy, flexible, transoral; with biopsy, single or multiple Diagnosis Code(s): --- Professional --- K31.89, Other diseases of stomach and duodenum K31.7, Polyp of stomach and duodenum K22.89, Other specified disease of esophagus K20.0, Eosinophilic esophagitis CPT copyright 2021 [employer]. All rights reserved. The codes documented in this report are preliminary and upon quality assurance engineer review may be revised to meet current compliance requirements. Jacky Rodgers MD 09/22/2024 12:10:06 PM This report has been signed electronically. Number of Addenda: 0 Note Initiated On: 09/22/2024 11:07 AM
--- NOTE | 2024-09-22 12:10 | OP.CCLET_ITS ---
09/22/2024 Adilia De Los Santos [facility] [address] [place] [address] Re : Upper GI endoscopy procedure for David Naranjo Dear Dr. De Los Santos This procedure was performed on August. My impressions and recommendations are as follows: Impressions : - No gross lesions in the duodenal bulb, in the first portion of the duodenum and in the second portion of the duodenum. No specimens collected. - Erythematous mucosa in the antrum. Biopsied. - Two gastric polyps. Biopsied. - Z-line regular, 40 cm from the incisors. No specimens collected. - Multiple plaques in the middle third of the esophagus and in the lower third of the esophagus. Biopsied. Recommendations : - Discharge patient to home (via wheelchair). - Soft diet today. - No aspirin, ibuprofen, naproxen, or other non-steroidal anti-inflammatory drugs for 2 days after biopsy. - Await pathology results. - Telephone my office for pathology results in 1 week. My findings are described in the full procedure note, which is enclosed. If I can be of further assistance, please feel free to contact me at Doctor phone number(s): , Work: . Sincerely, Jacky Rodgers MD 09/22/2024 12:10:06 PM This report has been signed electronically.
--- NOTE | 2024-09-22 13:48 | PCM.POSTANE2 ---
Anesthesia Postop Eval I Sum Postop Eval Completion status Anesthesia document: Postop Eval 1 completed: Yes Anesthesia Postop Eval I Summary Anesthesia Postop Eval I Summary: Anesthesia Postop Eval I: Assessment Summary Airway patent Yes 09/22/24 12:08 [email or web address] Spontaneous unlabored Yes 09/22/24 12:08 [email or web address] respirations Mental status Asleep 09/22/24 12:08 [email or web address] nausea No 09/22/24 12:08 [email or web address] Vomiting No 09/22/24 12:08 [email or web address] Anesthesia Postop Eval I: Fluid Summary Crystalloid volume administer 60 09/22/24 12:08 [email or web address] (ml) Colloids volume administered ( ml) Blood Product volume administered (ml) Total IV fluid infused 60 09/22/24 12:08 [email or web address] Anesthesia Postop Eval I: Summary Notes Anesthesia Complication No 09/22/24 12:08 [email or web address] Anesthesia Complication Comment: Post-operative progress note Anesthesia: Postop Eval II Evaluation Mental status: Awake and Calm Pain Level: 0 nausea: No Vomiting: No Complications Anesthesia Complication: No
== END 2024-09-22 13:02 | disposition home or self-care (01) ==
LOC: EN 10:30 → AC 10:32
PROVIDERS: PCP Internal Medicine; Referring Provider Internal Medicine; Visit Provider Surgery
PROC: 0DJ08ZZ Inspection of Upper Intestinal Tract, Via Natural or Artificial Opening Endoscopic (ICD-10-PCS; CPT 43235; principal; 2024-09-22 11:25)
DX: K20.0 Eosinophilic esophagitis (principal); K31.84 Gastroparesis; K31.7 Polyp of stomach and duodenum; K22.89 Other specified disease of esophagus; K21.9 Gastro-esophageal reflux disease without esophagitis; Z79.899 Other long term (current) drug therapy; F32.A Depression, unspecified; R11.2 Nausea with vomiting, unspecified; K82.8 Other specified diseases of gallbladder; K31.89 Other diseases of stomach and duodenum; K29.70 Gastritis, unspecified, without bleeding
CPT/HCPCS: 43239; 88305; 88342; A4216; J2405

== ENCOUNTER 2024-09-29 09:23 | Day surgery (SDC) | payer OTHER, SELFPAY ==
[2024-09-29] VITALS (15 sets, daily range): BP systolic 118–151; BP diastolic 58–81; PULSE 112–142; RESP 16–20; TEMP 36.4–37; O2SAT 92–100; BMI 18.0
--- NOTE | 2024-09-29 09:38 | EKG12_ITS ---
Test Reason : preop Blood Pressure : */* mmHG Vent. Rate : 113 BPM Atrial Rate : 113 BPM P-R Int : 100 ms QRS Dur : 88 ms QT Int : 304 ms P-R-T Axes : 82 93 59 degrees QTcB Int : 416 ms Sinus tachycardia with short NJ Right atrial enlargement Rightward axis Pulmonary disease pattern Abnormal ECG No previous ECGs available Confirmed by Jacky Marquis ([id number]), supervising editor news reel YELENA MALAGON ([id number]) on 10/06/2024 1:16:08 PM Referred By: Jacky Rodgers Confirmed By: Jacky Marquis
--- NOTE | 2024-09-29 10:00 | RAD_ITS ---
CLINICAL HISTORY: Male, 19 years old. Cholecystectomy, cholecystitis PROCEDURE: CHOLANGIOGRAM - intraoperative CONSENT: Informed consent obtained SEDATION: General FLUOROSCOPY TIME (if supplied): (2.4) seconds, 40 frame cine loop obtained Placement of the catheter and the procedure were performed by: Jacky Rodgers MD Fluoroscopy was provided by Corin Farias, who was present in the room time of the procedure. TECHNIQUE: (All elements of maximal sterile barrier technique followed, including US elements as applicable) After cholecystectomy, the cystic duct was cannulated and contrast injected into the biliary tree. There is normal filling of the biliary tree, there is no filling defects to suspect a retained stone or air bubble. There is free flow of contrast into the duodenum. There is no extravasation of contrast to suspect a bile leak. RAD/Cholangiogram/ O R,Initial IMPRESSION: Normal intraoperative cholangiogram Electronically Signed: Tulio Garcia MD at 13:57 EST ,
[2024-09-29] MEDS: 0.9% Normal Saline (1000mL) 1,000 ML 15 ML IV (10:15)
--- NOTE | 2024-09-29 10:43 | PRE.ANES_ITS ---
ASA Classification* ASA Classification ASA Classification: 2 Assessment & Plan Anesthesia* Anesthesia Assessment Anesthesia Assessment: Discussed sedation and/or anesthesia options, risks, benefits, and alternatives with patient/parents/legal guardian/POA. Questions invited. The patient/parents/legal guardian/POA seems to understand and agrees to proceed with anesthesia plan. Reviewed the physical assessment, medical history, allergy history and patient home medications list prior to surgery/procedure/anesthetic and documented any changes. Performed airway and anesthesia risk assessments. Anesthesia Type Anesthesia Type: General History Source History Obtained from:: Patient and Chart Anesthesia Focused Assessment* Temperature: 98.5 F Pulse Rate: 124 Blood Pressure: 123/81 Respiratory Rate: 18 Pulse Ox: 100 Oxygen Delivery Method: Room Air Airway Assessment Mouth opens: >3 cm Mallampati Score: II Teeth Condition: Intact Neck Range of motion (ROM): Full ROM Focused Labs Anesthesia Preop lab: CBC WBC 6.3 K/mm3 (4.4-11.0) 01/18/24 15:23 RBC 5.03 M/mm3 (4.6-6.2) 01/18/24 15:23 Hgb 15.3 g/dL (13.0-16.5) 01/18/24 15:23 Hct 44.8 % (40-54) 01/18/24 15:23 Plt Count 279 K/mm3 (150-450) 01/18/24 15:23 CHEMISTRY Potassium 3.6 mmol/L (3.5-5.1) 05/06/24 14:19 Sodium 138 mmol/L (136-145) 05/06/24 14:19 Magnesium 2.4 mg/dL (1.6-2.6) 03/05/23 09:28 BUN 8 mg/dL (7-18) 05/06/24 14:19 Creatinine 0.85 mg/dL (0.70-1.30) 05/06/24 14:19 Glucose 103 mg/dL (74-106) 05/06/24 14:19 TSH 0.67 uIU/mL (0.358-3.74) 05/06/24 14:19 COAG PT 14.4 SECONDS (11.7-14.9) 05/06/24 14:19 Pre-Assessment Diagnosis/Proposed Procedure Planned Operative Procedure(s): LAP GODWIN WITH GRAMS Anesthesia History 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 When Was Last Pacemaker Check QUESTION #4 FULL TEXT: You/Your Family Experience fever (hyperthermia) with Anesthesia Last Oral Intake Last Oral intake: Last Oral Intake NPO since 17:00 09/29/24 10:16 Meds taken in AM with sips of Yes 09/29/24 10:16 water? 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 Female No 09/19/24 09:53 HX of Motion Sickness No 09/19/24 09:53 HX of N/V After Surgery No 09/19/24 09:53 Non-Smoker Yes 09/19/24 09:53 Duration of Surgery greater No 09/19/24 09:53 than 60 minutes Number of Risk Factors 1 09/19/24 09:53 PONV Score Low Risk 09/19/24 09:53 Height & Weight Height & Weight: Anesthesia: Height & Weight Height 5 ft 8 in 09/29/24 10:16 Weight: 53.8 kg 09/29/24 10:16 Body Mass Index (BMI) 18.0 09/29/24 10:16 Respiratory Assessment Respiratory Assessment - tower supervisor: Respiratory Tract Infection Hx - tower supervisor Hx Respiratory Tract Infection No 09/19/24 09:53 STOP Sleep Apnea STOP Sleep Apnea - tower supervisor: STOP Sleep Apnea - tower supervisor Hx Hypertension No 09/19/24 09:53 Hx Sleep Apnea No 09/19/24 09:53 CPAP BIPAP Do you snore loudly (louder No 09/19/24 09:53 than talking or can be heard Do you often feel tired/ No 09/19/24 09:53 fatigued/ sleepy during daytime? Has anyone observed you stop No 09/19/24 09:53 breathing during sleep? STOP Results Negative 09/19/24 09:53 QUESTION #5 FULL TEXT : Do you snore loudly (louder than talking or can be heard through closed doors)? 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 Specify any problems Hx of Preganancy in last 3 N/A 09/19/24 09:53 Months Nurse Filling Out Transfusion DSCHRIBER 09/19/24 09:53 & Questions: Date: 09/19/24 09/19/24 09:53 Time: 09:54 09/19/24 09:53 Patient unable to answer at this time (ie. confused, unrespo /Reproduction History /Reproductive History - tower supervisor: /Reproductive Hx- tower supervisor Hx Now Gestational Age (in weeks): EDC: Hx Hx Para Hx Section SAB No 09/19/24 09:53 Active Medications Active Medications: Current Medications Generic Name Dose Route Start Last Admin Trade Name Freq PRN Reason Stop Dose Admin Cefazolin Sodium 2 gm/ N/A 20 mls @ 400 mls/hr 09/29/24 11:00 IV 09/29/24 11:02 PREOP ONE Sodium Chloride 1,000 mls @ 15 mls/hr 09/29/24 09:35 09/29/24 10:15 IV 10/04/24 22:54 15 mls/hr .Q48H BARBARA Administration Protocol PFSH Medical History Fatty liver RUQ pain Biliary dyskinesia Depression, unspecified Somatic symptom disorder History of echocardiogram Gastroesophageal reflux disease Wears contact lenses Anxiety History of steroid therapy Restless legs Shortness of breath on exertion Non-smoker Home Medications ?Medication ?Instructions ?Recorded ?Last Taken ?Type acetaminophen 325 mg tablet 325 mg PO ONCE PRN pain 05/06/24 05/12/24 History (Tylenol) cholecalciferol (vitamin D3) 125 125 mcg PO DAILY 05/06/24 05/12/24 History mcg (5,000 unit) capsule multivitamin 1 tab PO DAILY 05/06/24 05/12/24 History prochlorperazine maleate 10 mg 10 mg PO Q8H PRN nausea and 07/14/24 Unknown Rx tablet (Compazine) vomiting 30 days #30 tabs bupropion HCl 150 mg 24 hr tablet, 150 mg PO QAM #30 tabs 08/10/24 Unknown Rx extended release (Wellbutrin XL) ondansetron 4 mg disintegrating 4 mg PO Q8H PRN nausea and 09/14/24 09/29/24 08:30 Rx tablet vomiting #30 tabs pantoprazole 40 mg tablet,delayed 40 mg PO QDAY #30 tabs 09/19/24 Unknown Rx release budesonide 2 mg/10 mL oral 10 ml PO BID 12 weeks #1,680 mL 09/26/24 Unknown Rx suspension in packet Allergy/AdvReac Type Severity Reaction Status Date / Time Sulfa (Sulfonamide Allergy Unknown UNKNOWN Verified 09/29/24 10:15 Antibiotics) Family History Sister Anemia Anxiety Thyroid disorder Vitamin D deficiency Postural orthostatic tachycardia syndrome Mother Anxiety History of blood transfusion Raynauds disease Quan-Danlos syndrome Brother Anxiety Asthma Chiari I malformation Migraines Father Asthma Bowel disease IBS Grandfather Diabetes Heart disease Mitral valve disease Afib Grandmother Parkinsons Surgical History Hx of esophagogastroduodenoscopy History of nasal polypectomy Hx of wisdom tooth extraction Social History adopted: No household members: family housing: house number of children: 0 current occupational status: unemployed current occupational exposures/hazards: No pets and animals: Yes pets and animals: dog(s) leisure activities: games history of recent travel: No sexually active: No Smoking Status: Never smoker alcohol intake: never substance use type: does not use well-balanced diet: daily or most days caffeine: No eating out: 1-3 times/week during the past year weight has: remained stable what type of physical activity do you participate in: none seatbelt use: always do you feel safe at home: Yes Review of Systems (Anesthesia) ROS Narrative System reviewed and no additional complaints, except as documented.
--- NOTE | 2024-09-29 11:00 | GALL_PTH ---
PATIENT: DEVAN SPENCER LOC: [facility] U#:[id number] AGE/SX: 19/M ROOM: RE09/29/[address]: Dr. Jacky Rodgers MD : 2005 BED: DIS: 09/29/2024 SPEC #: [id number] RECD: 09/29/24 16:46 STATUS: JT MURRAY #: [id number] IVY: 09/29/24 11:[address]: Jacky Rodgers DEPT: SURGICAL PATHOLOGY RECD BY: Bianka Byrne ENTERED: 09/30/24 09:43 SP TYPE: PARRISH NICHOLAS DR: Dr. Adilia De Los Santos MD Tissues: Gallbladder, NOS Procedures: Surgery Specimen Level III HEADER OPERATION: Laparoscopic cholecystectomy with IOC PRE-OP DIAGNOSIS: Abnormal biliary HIDA scan TISSUE SUBMITTED: Gallbladder MICROSCOPIC DIAGNOSIS Gallbladder, cholecystectomy: Mild chronic cholecystitis. See judith. 10/03/2024 COMMENT No stones are identified in the gallbladder or in the container. MICROSCOPIC DESCRIPTION Slides are reviewed. GROSS DESCRIPTION Received is one container labeled with the patient's name and designated gallbladder. The specimen consists of a gallbladder measuring 8.5 cm in length and up to 3.0 cm in diameter. The external surface is pink-nguyen, smooth and glistening for the most part. Focally it is granular, hemorrhagic and contains cautery artifact. The gallbladder contains green-yellow mucoid bile. No stones are identified in the container or in the gallbladder. The mucosa is bile-stained and without any mass lesions. The gallbladder wall measures up to 0.2 cm in thickness. Biochemistry Technician sections from the gallbladder and the cystic duct are submitted in one cassette. / SJ: 09/30/2024 TC:3 CPT: 83302
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
[2024-09-29] MEDS: Cefazolin 2 GM in Syringe IV (11:30)
[2024-09-29] MEDS: Bupiv/Epi 0.25% 30 ML Vial (12:58)
--- NOTE | 2024-09-29 13:00 | PCM.OPRPT ---
Procedures Digestive 40xxx-49xxx: [id number] Laparo cholecystectomy/graph Operative Report (Standard) Operative Information Date of Procedure: 09/29/24 Pre-Operative Diagnosis: Functional gallbladder disorder in adult ( biliary dyskinesia) Post-Operative Diagnosis: 1. Functional gallbladder disorder in adult ( biliary dyskinesia) 2. 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: Yes Classification Counselor: Glo De Los Santos Tasks completed by commercial lines account assistant: Opening & closing, Trocar, Retracting and Other (Operation of laparoscope) Type of Anesthesia: General/Supplemental RN Documented Start/Stop Times: Operation Date: 09/29/24 11:00 Case Time Into Pre-Op 09/29/24 09:33 Out of Pre-Op 09/29/24 11:10 Anesthesia Start 09/29/24 11:14 Into Room 09/29/24 11:14 Procedure Start 09/29/24 11:45 Procedure End 09/29/24 13:13 Anesthesia End 09/29/24 13:22 Out of Room 09/29/24 13:22 Into Recovery 09/29/24 13:25 Procedure Start Time: 11:45 Procedure Stop Time: 13:13 Select all DRAINS/GRAFTS/IMPLANTS that apply: None Estimated Blood Loss: 15 Specimen collected: Yes Description of specimen(s) removed: Gallbladder Description of surgery: After proper identification in the preoperative holding area the patient was brought to the operating room where he was positioned supine on the operating room table. Preoperatively SCDs were placed and antibiotics were administered. General anesthesia was then induced. Patient's abdomen was prepped and draped in usual sterile fashion. A formal timeout was conducted to confirm both patient and the procedure. Procedure was begun with a supraumbilical incision which was extended deeply down to the level of the fascia. The fascia was elevated and incised, as well as the peritoneum. A finger sweep was performed to ensure there were no underlying adhesions and a 12 mm balloon trocar was inserted. Pneumoperitoneum was established at 15 mmHg. Three additional trocars (all 5 mm) were placed in the epigastrium and in the right upper quadrant. Inspection of the peritoneum revealed no inadvertent injury to the viscera below. The gallbladder was visualized with mild inflammation of the gallbladder infundibulum. The gallbladder fundus was then grasped and elevated cephalad. Then, using careful dissection the peritoneum was opened and the structures of the hepatocystic triangle were delineated. Once the critical view of safety was obtained, the cystic duct was singly clipped and partially divided with a ductotomy. The proximal duct was milked of any debris until there was backflow of bile. A cholangiocatheter was fed into the abdomen via a laparoscopically guided 14-gauge angiocatheter and then into the proximal segment of the cystic duct and clipped into place. Under fluoroscopy a cholangiogram was then obtained showing a relatively standard length cystic duct flowing into a common bile duct with unobstructed antegrade flow of contrast into the duodenum. There was also retrograde flow through the common hepatic duct into the right and left hepatic ducts. Satisfied with this result, the cholangiocatheter was withdrawn and the proximal cystic duct was sealed with clips and the cystic duct was completely transected. The same process was used for the cystic artery. The gallbladder was then removed from the gallbladder fossa with the use of electrocautery. A secondary artery was identified midway up the gallbladder fossa and to maintain hemostasis I clipped this structure and divided at with cautery. Following removal of the gallbladder hemostasis was found intact. Thus the gallbladder was placed in an Endo Catch bag and removed from the peritoneum. Morison's pouch was irrigated and the effluent was suctioned free of the peritoneum. Hemostasis was again confirmed. Pneumoperitoneum was evacuated and the fascia of the 12 mm port site was closed with #1Vicryl in a [id number] fashion. A total of 30 mL of anesthetic was injected at the port sites for postoperative pain control. The skin of each port site was then closed in subcuticular fashion using 4-0 Monocryl. Steri-Strips and bandages were applied as dressings. Patient tolerated the procedure well without any apparent complications. On emergence from their anesthetic the patient was taken to PACU for ongoing recovery. Surgical Findings: ? Numerous sick strands coursing across the hepatocystic triangle likely representing lymphatics ? Cholangiogram unremarkable Complications Complications: No Admit VTE Documentation VTE Mechan Device Prophylaxis: SCD's
--- NOTE | 2024-09-29 13:02 | DCINST_ITS ---
Discharge Instructions Diet Discharge Diet: No restrictions Activity Discharge Activity: May Not Drive (No driving while using narcotic pain medication) and May Shower (Postoperative day 1) May shower in (days): 2 Ice area for (Minutes): 20 Lifting Restrictions: No lifting greater than 15 pounds for 2 weeks after surgery Dressing / Incision Call your doctor if your incision/area has: Continuous Slow Oozing, Increased Pain/ Swelling, Increased Redness, Foul Smelling Discharge and Swelling at the incision site Call your doctor if you observe: Fever of 101 or Higher Remove Dressing in: 2 days (Please leave Steri-Strips intact until they fall off spontaneously or are taken off at your follow-up visit) Cleanse incision/area with: Soap & Water Follow Up Care Please Follow Up With: Jacky Rodgers MD When: 10-14days postop Test Results: Test results from this visit will be discussed in further detail at your follow- up appointment, if applicable. Discharge Plan Admission Primary Reason for Your Visit: Cholecystectomy Attending Provider: Jacky Rodgers Primary Care Provider: Adilia De Los Santos Instructions Print Language: Khmer Discharge Orders/Prescriptions Prescriptions: New oxycodone 5 mg tablet 5 mg PO Q6H PRN (Reason: pain) 3 Days Qty: 14 0RF Continued acetaminophen [Tylenol] 325 mg tablet 325 mg PO ONCE PRN (Reason: pain) cholecalciferol (vitamin D3) 125 mcg (5,000 unit) capsule 125 mcg PO DAILY multivitamin Tablet 1 tab PO DAILY bupropion HCl [Wellbutrin XL] 150 mg tablet extended release 24 hr 150 mg PO QAM Qty: 30 1RF prochlorperazine maleate [Compazine] 10 mg tablet 10 mg PO Q8H PRN (Reason: nausea and vomiting) 30 Days Qty: 30 1RF ondansetron 4 mg tablet,disintegrating 4 mg PO Q8H PRN (Reason: nausea and vomiting) Qty: 30 1RF pantoprazole 40 mg tablet,delayed release (DR/EC) 40 mg PO QDAY Qty: 30 0RF Rx Instructions: take one tablet once daily budesonide 2 mg/10 mL suspension in packet 10 ml PO BID 84 Days Qty: 1680 0RF Rx Instructions: administer in the morning and evening Referrals / Follow Up: Adilia De Los Santos MD [Primary Care Provider] - Disposition Disposition (needs filled in before D/C Order can be placed): Home, Self Care
--- NOTE | 2024-09-29 13:25 | PCM.POST.ANE ---
Anesthesia: Postop Eval I Current Vital Signs Temperature: 98.4 F Pulse Rate: 142 Blood Pressure: 151/58 Respiratory Rate: 20 Pulse Ox: 100 Oxygen Delivery Method: Room Air Assessment Airway patent: Yes Spontaneous unlabored respirations: Yes Mental status: Awake nausea: No Vomiting: No Anesthesia Complication: No Fluid Hydration Crystalloid volume administer (ml): 1,900 Total IV fluid infused: 1,900 Progress Note Anesthesia document: Postop Eval 1 completed: Yes
--- NOTE | 2024-09-29 15:06 | POSTOPAN2_ITS ---
Anesthesia Postop Eval I Sum Postop Eval Completion status Anesthesia document: Postop Eval 1 completed: Yes Anesthesia Postop Eval I Summary Anesthesia Postop Eval I Summary: Anesthesia Postop Eval I: Assessment Summary Airway patent Yes 09/29/24 13:27 VISCOSE CELLAR CHARGE HAND.MDOT Spontaneous unlabored Yes 09/29/24 13:27 VISCOSE CELLAR CHARGE HAND.MDOT respirations Mental status Awake 09/29/24 13:27 VISCOSE CELLAR CHARGE HAND.MDOT nausea No 09/29/24 13:27 VISCOSE CELLAR CHARGE HAND.MDOT Vomiting No 09/29/24 13:27 VISCOSE CELLAR CHARGE HAND.MDOT Anesthesia Postop Eval I: Fluid Summary Crystalloid volume administer 1,900 09/29/24 13:27 VISCOSE CELLAR CHARGE HAND.MDOT (ml) Colloids volume administered ( ml) Blood Product volume administered (ml) Total IV fluid infused 1,900 09/29/24 13:27 VISCOSE CELLAR CHARGE HAND.MDOT Anesthesia Postop Eval I: Summary Notes Anesthesia Complication No 09/29/24 13:27 VISCOSE CELLAR CHARGE HAND.MDOT Anesthesia Complication Comment: Post-operative progress note Anesthesia: Postop Eval II Evaluation Mental status: Awake and Calm Pain Level: 1 nausea: Yes Vomiting: No Progress Note Post-operative progress note: Benadryl and Reglan given for continued nausea in PACU. Patient has already had 4 doses of Zofran today.
--- NOTE | 2024-09-29 15:06 | PCM.POSTANE2 ---
Anesthesia Postop Eval I Sum Postop Eval Completion status Anesthesia document: Postop Eval 1 completed: Yes Anesthesia Postop Eval I Summary Anesthesia Postop Eval I Summary: Anesthesia Postop Eval I: Assessment Summary Airway patent Yes 09/29/24 13:27 MEDICAL RECORDS DIRECTOR.MDOT Spontaneous unlabored Yes 09/29/24 13:27 MEDICAL RECORDS DIRECTOR.MDOT respirations Mental status Awake 09/29/24 13:27 MEDICAL RECORDS DIRECTOR.MDOT nausea No 09/29/24 13:27 MEDICAL RECORDS DIRECTOR.MDOT Vomiting No 09/29/24 13:27 MEDICAL RECORDS DIRECTOR.MDOT Anesthesia Postop Eval I: Fluid Summary Crystalloid volume administer 1,900 09/29/24 13:27 MEDICAL RECORDS DIRECTOR.MDOT (ml) Colloids volume administered ( ml) Blood Product volume administered (ml) Total IV fluid infused 1,900 09/29/24 13:27 MEDICAL RECORDS DIRECTOR.MDOT Anesthesia Postop Eval I: Summary Notes Anesthesia Complication No 09/29/24 13:27 MEDICAL RECORDS DIRECTOR.MDOT Anesthesia Complication Comment: Post-operative progress note Anesthesia: Postop Eval II Evaluation Mental status: Awake and Calm Pain Level: 1 nausea: Yes Vomiting: No Progress Note Post-operative progress note: Benadryl and Reglan given for continued nausea in PACU. Patient has already had 4 doses of Zofran today.
== END 2024-09-29 16:48 | disposition home or self-care (01) ==
LOC: SDC 09:24 → AC 09:25
PROVIDERS: PCP Internal Medicine; Referring Provider Surgery; Visit Provider Surgery
PROC: (CPT 47610; principal; 2024-09-29 10:40)
DX: K82.8 Other specified diseases of gallbladder (principal); K81.1 Chronic cholecystitis; K31.84 Gastroparesis; K21.00 Gastro-esophageal reflux disease with esophagitis, without bleeding; Z79.899 Other long term (current) drug therapy; Z83.79 Family history of other diseases of the digestive system
CPT/HCPCS: 47563; 00790; 74300; 76000; 88304; 93005; J2405

== ENCOUNTER → 2025-05-09 | Outpatient (CLI) | payer OTHER, SELFPAY ==
[2025-05-09 09:53] LABS: Hematocrit 45.4 % (40-54); Hemoglobin 15.6 g/dL (13.0-16.5); Immature Granulocytes Count 0.010 X10^3/uL (0.0-0.0); Mean Corp Hgb Conc 34.4 g/dL (32-36); Mean Corpuscular Volume 88.3 fL (80-94); Mean Platelet Vol. 10.9 fl (6.2-12.0); NRBC Flagged by Analyzer 0 % (0-5); Platelet Count 222 K/mm3 (150-450); RBC Distribution Width CV 11.2 % (11.6-14.6); RBC Distribution Width SD 36.1 fl (35.1-43.9); Red Blood Count 5.14 M/mm3 (4.6-6.2); White Blood Count 4.1 K/mm3 (4.4-11.0)
[2025-05-09 10:44] LABS: AST(SGOT) 18 U/L (<=37); Alanine Aminotransfer ALT/SGPT 8 U/L (<=46); Albumin, Serum 4.9 g/dL (3.5-5.0); Alkaline Phosphatase 69 U/L (40-129); Anion Gap 12 (5-15); BUN 9 mg/dL (4-19); BUN/Creat Ratio 8.8 RATIO (10-20); Calcium,Total 9.8 mg/dL (7.6-11.0); Carbon Dioxide 26.1 mmol/L (21.0-32.0); Chloride 102 mmol/L (98-108); Free T3 3.6 pg/mL (2.18-3.98); Globulin 2.8 g/dL (2.2-4.2); Glucose 88 mg/dL (70-99); Magnesium 2.2 mg/dL (1.5-2.2); Potassium 3.9 mmol/L (3.3-5.1); Vitamin B12 433 pg/mL (180-914); Vitamin D,25 Hydroxy 25.3 ng/mL (30-100)
[2025-05-11 22:07] LABS: VITAMIN B6 19.4 ug/L (3.4-65.2)
== END | disposition home or self-care (01) ==
PROVIDERS: PCP Internal Medicine; Referring Provider Internal Medicine; Visit Provider Internal Medicine
DX: R94.8 Abnormal results of function studies of other organs and systems (principal); R63.0 Anorexia; E53.8 Deficiency of other specified B group vitamins; E55.9 Vitamin D deficiency, unspecified; K21.9 Gastro-esophageal reflux disease without esophagitis; K31.84 Gastroparesis; K76.0 Fatty (change of) liver, not elsewhere classified; Q79.60 Ehlers-Danlos syndrome, unspecified; Z90.49 Acquired absence of other specified parts of digestive tract
CPT/HCPCS: 36415; 80053; 82306; 82607; 83036; 83525; 83735; 84207; 84439; 84443; 84481; 85025; 86376; 86800